=== PATIENT | female | born 1940 | race Caucasian/White ===

== ENCOUNTER 2018-08-31 10:28 | Inpatient (IN) | payer OTHER ==
[2018-08-31] VITALS (31 sets, daily range): BP systolic 67–116; BP diastolic 29–91
[~2018-08-31] VITALS: Ht 152.4 cm; Wt 93.3 kg
--- NOTE | ~2018-08-31 | HC ---
[facility] [place] [address] CONSULTATION Name: ALISHA PALMA Room #: 246-P ADM IN M.R.#: [id number] Admission: 08/31/18 Attend Phys: David Gonzales MD Discharge: Date of : 42 Report #: [id number] THIS REPORT FOR: //name// CC: David Naranjo REASON FOR CONSULTATION: Weakness, lightheadedness, acute kidney injury and hyperkalemia. HISTORY OF PRESENT ILLNESS: A 77-year-old with extensive past medical history including diabetes mellitus and hypertension. However, she is not known to have chronic kidney disease as she stated. She presented to the hospital with sudden onset lightheadedness, weakness, lethargy that started this morning after she woke up from sleep. She also reported to [employer] emesis times 3. She tells me that she has been taking daily ibuprofen for the last few days. She visited with [facility] few weeks ago for the same symptoms. She was told that she had a kidney infection and prescribed some medication, but the patient or her son does not know the name of the medications for the infection. No chest pain. No shortness of breath. No palpitation. No neurological symptoms. She also reported to black stool; however, she is taking iron. She tells me that her blood pressure and blood sugar are under well control. She has had an EGD and colonoscopy few years ago and was told that she has a benign polyp. When the patient presented to the emergency room, she was found to have an acute kidney injury with elevated creatinine at 2.9. No known baseline. She was also found to be hyperkalemic and in sinus bradycardia. Blood pressure on presentation was on the low side with reported blood pressure readings initially of 113/73. She did have some loss of appetite. I am being consulted to manage her acute kidney injury. HOME MEDICATIONS: Include the followin. Ferrous sulfate. 2. Atorvastatin. 3. Spironolactone. 4. Benazepril. 5. Aspirin. 6. Ibuprofen. 7. Raloxifene. 8. Lasix. 9. Metformin. 10. Levothyroxine. 11. Potassium. FAMILY HISTORY: She tells me that her dad had some heart enlargement issues. SOCIAL HISTORY: She lives with her son. No drug or alcohol abuse. 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 [address] [address] CONSULTATION Name: ALISHA PALMA Room #: 246-P [facility] IN ..#: [id number] Admission: 08/31/18 Attend Phys: David Gonzales MD Discharge: Date of : 42 Report #: [id number] REVIEW OF SYSTEMS: GENERAL: Significant for weakness, lethargy. CARDIOVASCULAR: No chest pain or palpitation. PULMONARY: No cough or hemoptysis. GASTROINTESTINAL: As per the history of present illness. GENITOURINARY: No frequency, no urgency. MUSCULOSKELETAL: Chronic back pain. SKIN: No rash or ulcerations. PAST SURGICAL HISTORY: 1. section. 2. Small bowel obstruction. 3. Four back surgeries. PHYSICAL EXAMINATION: GENERAL: She is alert, oriented, in no apparent distress. VITAL SIGNS: Temperature 36.6, blood pressure was 113/73. HEAD AND NECK: No jugular venous distention, no bruit, no thyromegaly. CHEST: Clear to auscultation bilaterally. CARDIOVASCULAR: No rub detected. ABDOMEN: Soft, nontender. LOWER EXTREMITIES: No edema. LABORATORY VALUES: Reviewed. pH of 7.2. Sodium 131, potassium 6.5, carbon dioxide 18, BUN is 48, creatinine is 2.9. UA is not received. Chest x-ray is not done. ASSESSMENT, IMPRESSION AND PLAN: 1. Acute kidney injury. 2. Hyperkalemia. 3. Hypotension. 4. Diabetes mellitus. 5. History of hypertension. 6. Hyperlipidemia. 7. Hypothyroidism. The patient's acute kidney injury is well explained by her presentation, hypertension, numerous blood pressure medications. Her hyperkalemia is also well explained by the angiotensin converting enzyme inhibitor, potassium supplement, and spironolactone. She does seem to be volume depleted and this is being investigated by the GI team. From the renal perspective, she received appropriate treatment for her hyperkalemia and repeat potassium is pending. I will reformulate her IV fluid. This is to address her acidosis and hyperkalemia. Continue with the fluid resuscitation. Strict input and output. Discontinue all offending agents of hyperkalemia including potassium supplementations and spironolactone. Discontinue anti-blood pressure [address] [address] CONSULTATION Name: ALISHA PALMA Room #: 246-P ADM IN M.R.#: [id number] Admission: 08/31/18 Attend Phys: David Gonzales MD Discharge: Date of : 42 Report #: [id number] medications. Discontinue metformin. Gastrointestinal workup had been initiated. By: [id number] Kathy Mercado MD /tucker
[2018-08-31] MEDS ORDERED: ASPIR 8181 MG PO (10:41)
[2018-08-31] MEDS ORDERED: LASIX 40 MG TAB40 M2 PO (10:41)
[2018-08-31] MEDS ORDERED: VITAMIN E400 UNIT PO (10:42)
[2018-08-31] MEDS ORDERED: EVISTA PO (10:43)
[2018-08-31] MEDS ORDERED: IRON325 PO (10:44)
[2018-08-31] MEDS ORDERED: SYNTHROID75 MCG PO (10:44)
[2018-08-31] MEDS ORDERED: EVISTA60 MG PO (10:44)
[2018-08-31] MEDS ORDERED: ALDACTONE100 MG PO (10:45)
[2018-08-31] MEDS ORDERED: LIPITOR10 MG PO (10:46)
[2018-08-31] MEDS ORDERED: CRESTOR20 MG PO (10:46)
[2018-08-31] MEDS ORDERED: BENAZEPRIL HCL20 MG PO (10:46)
[2018-08-31] MEDS ORDERED: JANUVIA100 MG PO (10:47)
[2018-08-31] MEDS ORDERED: IBUPROFEN 800800 M1 PO (10:48)
[2018-08-31] MEDS ORDERED: GLIPIZIDE ER10 MG PO (10:48)
[2018-08-31] MEDS ORDERED: POTASSIUM20 PO (10:49)
[2018-08-31] MEDS ORDERED: METFORMIN HCL500 MG PO (10:49)
[2018-08-31 12:57] LABS: ABSOLUTE NEUTROPHILS 7.6 thou/uL (1.4-8.2); BASOPHILS 1.1 % (0.0-2.0); EOSINOPHILS 0.8 % (0.0-3.0); HEMATOCRIT 40.8 % (37.0-47.0); HEMOGLOBIN 13.4 gm/dL (12.0-15.0); LYMPHOCYTES 18.7 % (24.0-44.0); MCH 26.1 pg (26.0-34.0); MCHC 32.7 g/dL (28.0-37.0); MCV 79.7 fL (80.0-100.0); MONOCYTES 5.1 % (1.0-8.0); PLATELET COUNT 142 thou/uL (150-400); POLYS 74.3 % (36.0-66.0); RBC 5.12 mil/uL (4.20-5.00); RDW 20.6 % (10.5-14.5); WBC 10.3 thou/uL (4.0-11.0)
[2018-08-31 13:07] LABS: ANION GAP 14 mmol/L (7-16); BUN 48 mg/dL (7-18); CHLORIDE 99 mmol/L (98-107); CO2 18 mmol/L (21-32); CREATININE 2.9 mg/dL (0.6-1.0); GLUCOSE 163 mg/dL (74-106); SODIUM 131 mmol/L (136-145)
[2018-08-31 13:08] LABS: POTASSIUM 6.5 mmol/L (3.5-5.1)
[2018-08-31 13:13] LABS: APTT 28.3 Seconds (24.5-32.8)
[2018-08-31 13:19] LABS: ALBUMIN 3.4 g/dL (3.4-5.0); LIPASE 123 U/L (73-393); SGOT 24 U/L (15-37); SGPT 32 U/L (14-59); TOTAL BILIRUBIN 0.4 mg/dL (<0.1-1.0); TOTAL PROTEIN 6.8 g/dL (6.4-8.2); TROPONIN-I <0.06 ng/mL (<0.06)
[2018-08-31 13:29] LABS: INR 1.1; PROTIME 11.2 Seconds (9.3-11.4)
[2018-08-31 13:35] LABS: ANISOCYTOSIS 1+; OVALOCYTES 1+; PLATELET ESTIMATE NORMAL
[2018-08-31 13:38] LABS: BE(vivo) -12.4 mmol/L (-2 to +3); HCO3 14.3 mmol/L (22.0-26.0); PCO2 35.6 mmHg (35.0-45.0); PO2 86.7 mmHg (80.0-100.0); sO2 94.9 % (92.0-98.0)
[2018-08-31 13:39] LABS: pH 7.223 (7.360-7.450)
[2018-08-31 15:04] LABS: URINE BILIRUBIN NEGATIVE (Negative); URINE BLOOD NEGATIVE (Negative); URINE CLARITY CLEAR; URINE COLOR YELLOW; URINE GLUCOSE-RANDOM* NEGATIVE (Negative); URINE KETONES NEGATIVE (Negative); URINE LEUKOCYTES-REFLEX TRACE (Negative); URINE NITRITE-REFLEX NEGATIVE (Negative); URINE PROTEIN (DIPSTICK) NEGATIVE (Negative); URINE UROBILINOGEN 0.2 E.U./dl (0.2-1.0)
[2018-08-31 15:12] LABS: URINE CREATININE-RANDOM* 49.2 mg/dL; URINE PROTEIN-RANDOM* 27.6 mg/dL (<11.9)
--- NOTE | 2018-08-31 16:17 | EKG ---
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: WG : 1940 Requested By: Navneet Hayes Order Number: [id number] MD: Dakotah Oneil Measurements Intervals [place] Rate: 64 P: 15 DE: 163 QRS: -6 QRSD: 96 T: 62 QT: 396 QTc: 409 Interpretive Statements Sinus rhythm Inferior infarct, age indeterminate Consider anterior infarct No previous ECG available for comparison Electronically Signed On 08-31-2018 16:17:47 CRIMINAL LAWYER by Dakotah Oneil [email or web address] <ELECTRONICALLY SIGNED> By: Dakotah Oneil MD, [facility] 08/31/18 1617 1103 02 Dakotah Oneil MD, FACC /EPI
--- NOTE | 2018-08-31 16:18 | NUR ---
VASCULAR ACCESS CONSULTED FOR ACCESS THIS PT IN THE ER. A 16G PLACED IN RT AC WITH LABS DRAWN, THEN AN 18G IN MILES WITH LABS DRAWN, THEN DR SEBASTIÁN PARRY REQUESTED A CL. THE PT'S SON WAS AT THE BS AND CONSENTED VERBALLY. PER HOSP P&P HER RT IJ WAS ACCESSED X1 ATTEMPT WITH US GUIDE, A [id number] PLACED IN RT IJ AND INSERTED TO 19CM WITH A BRISK BLOOD RETURN. LABS OBTAINED AGAIN AND CXR WAS ORDERED. THE PT WAS SENT TO ICU PRIOR TO THE CXR SO WILL FOLLOW UP AND ENSURE THE TIP IS CONFIRMED IN THE CORRECT POSITION.
--- NOTE | 2018-08-31 19:24 | NUR ---
PT ARRIVED AT 1620 VIA ER GURJOSE EDUARDO. A/OX4, COMPLAINTS OF DIZZINESS, SEE CHARTING FOR VITAL SIGNS, ORDERS TO GIVE REMAINING NS BOLUSES AND CALL NEPHROLOGY WITH UPDATED B/P. 1650 B/P 66/40 POST BOLUSES, PIPPA CALLED TO UPDATE, ORDERS RECEIVED, WILL MONITOR CLOSELY.
[2018-09-01] VITALS (59 sets, daily range): BP systolic 86–123; BP diastolic 41–105
[2018-09-01 03:11] LABS: HEMATOCRIT 36.1 % (37.0-47.0); HEMOGLOBIN 11.6 gm/dL (12.0-15.0); MCH 25.3 pg (26.0-34.0); MCHC 32.3 g/dL (28.0-37.0); MCV 78.4 fL (80.0-100.0); RBC 4.6 mil/uL (4.20-5.00); RDW 20.7 % (10.5-14.5); WBC 12.7 thou/uL (4.0-11.0)
[2018-09-01 03:21] LABS: POTASSIUM 4.7 mmol/L (3.5-5.1)
[2018-09-01 03:25] LABS: CALCIUM 6.9 mg/dL (8.5-10.1)
[2018-09-01 03:26] LABS: ALBUMIN 2.7 g/dL (3.4-5.0); PHOSPHORUS 3.5 mg/dL (2.5-4.9); TOTAL BILIRUBIN 0.4 mg/dL (<0.1-1.0); TOTAL PROTEIN 5.7 g/dL (6.4-8.2)
--- NOTE | 2018-09-01 07:30 | NUR ---
ASSUMED CARE OF PT AT 1900. PT A&O, PLEASANT, AND IN NO DISTRESS. PT STILL HYPOTENSIVE EARLIER IN THE NIGHT, BUT MAP ALWAYS REMAINED ABOVE 60. TWO NS LITER BOLUSES INFUSING AT THE TIME, AND EVEN AFTER THEY WERE FINISHED, PT'S BP CONTINUED TO IMPROVE. PT C/O OF SOME PAIN OVERNIGHT, BUT SLEPT WELL OVERALL. AROUND 0250, PT ASKED TO GET UP TO COMMODE TO HAVE BOWEL MOVEMENT. PT TX'D WELL, WITHOUT DISTRESS, AND HAD A LARGE, SOFT BLACK BM. PT TX'D BACK TO BED WITHOUT DIFFICULTY. WHEN GETTING SITUATED IN BED, PT'S RHYTHM WENT FROM SINUS TACH TO TORSADES DE POINTES, NON-SUSTAINED. THE EPISODE LASTED SEVERAL MINUTES, ALL OF WHICH TIME THE PT WAS SITTING UP IN BED, ALERT, AND TALKING. PT SAID SHE WAS SOMEWHAT DIZZY AFTER RETURNING TO BED. STAT LABS DRAWN. MAG RESULTED 1.0. DR. ANTHONY NOTIFIED AND 4 MG MAGNESIUM ORDERED TO INFUSE OVER 6 HOURS. NO MORE EPISODES OF TORSADES OR ANY DYSRHYTHMIA FOR THE REST OF THE SHIFT, PT IN SINUS RHYTHM. STOOL SENT TO LAB FOR OCCULT BLOOD. STOOL WAS POSITIVE FOR BLOOD. PT TO HAVE EGD TODAY D/T COFFEE GROUND EMESIS ON ADMISSION. ASSESSMENTS AND VITALS DOCUMENTED. WILL CONTINUE TO MONITOR. PT'S HOME MEDS INVENTORY TAKEN AND SENT TO PHARMACY.
--- NOTE | 2018-09-01 10:14 | EKG ---
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 : 1940 Requested By: David Gonzales Order Number: [id number] MD: Balaji Thompson Measurements Intervals [place] Rate: 80 P: 34 ID: [id number] QRS: -5 QRSD: 87 T: 146 QT: 336 QTc: 388 Interpretive Statements Sinus rhythm Abnormal R-wave progression, early transition Inferior infarct, old Lateral leads are also involved Compared to ECG 08/31/2018 11:03:32 No significant changes Electronically Signed On 09-01-2018 10:13:56 CARDIAC SPECIALIST by Balaji Thompson [email or web address] <ELECTRONICALLY SIGNED> By: Balaji Thompson MD 09/01/18 1013 [id number] [id number] Balaji Thompson MD /EPI
--- NOTE | 2018-09-01 17:37 | NUR ---
PATIENT RESTING QUIETLY AND CALMLY AT THIS TIME. SHE HAD AN EGD TODAY, NOT PERFORMED IN THE ICU. SHE ARRIVED BACK TO THE UNIT ALERT AND ORIENTED. SHE REMAINS PLEASANT AND COOPERATIVE. VITAL SIGNS DOCUMENTED. MARTINEZ WAS DISCONTINUED PER RENAL PHYSICIAN ORDER. SHE HAS HAD A DRIBBLE OUT AFTER MARTINEZ REMOVAL, HOWEVER NOTHING MEASURABLE. SHE HAS HAD TWO SMEAR BOWEL MOVEMENTS, HOWEVER NOTHING SIGNIFICANT. SHE DENIES NAUSEA AND WAS STARTED ON A FULL LIQUID DIET. SHE IS UP TO COMMODE WITH ASSIST X1, STABLE AND STEADY ON HER FEET. PT TO COME WORK WITH HER TOMORROW TODAY SHE HAD MULTIPLE TESTS. MINIMAL ECTOPY NOTED ON RHYTHM STRIPS, SHE HAS ONLY HAD OCCASIONAL PVC'S. PLAN OF CARE IS TO CONTINUE TO MONITOR PATIENT STATUS, PAIN LEVEL, PROVIDE EDUCATION, PERFORM VITAL SIGNS, AND MONITOR I&O. PATIENT PROGRESSING TOWARDS PLAN OF CARE.
--- NOTE | 2018-09-01 20:51 | 2DMMODE ---
[facility] [place] [address] 2 D/M-MODE ECHOCARDIOGRAM Name: ALISHA PALMA Room #: 246-P ADM IN M.R.#: [id number] Admission: 08/31/18 Attend Phys: David Gonzales MD Discharge: Date of : 42 Date of Service: 09/01/182050 Report #: [id number] THIS REPORT FOR: //name// APPROVED REPORT Study performed: 09/01/2018 09:00:07 EXAM: Comprehensive 2D, Doppler, and color-flow Echocardiogram Patient Location: ICU Room #: [facility] Status: routine BSA: 1.82 HR: 81 bpm BP: 109/64 mmHg Rhythm: NSR Other Information Study Quality: Technically Difficult Indications Abnormal ECG Diabetes Hypertension/HDD Echo Enhancing Agent Indication: Endocardial border delineation Agent(s) / Amount(s) Used: Optison 2 cc 2D Dimensions RVDd: 31.83 mm IVSd: 5.92 (7-11mm) LVOT Diam: 16.89 (18-24mm) LVDd: 46.35 mm PWd: 9.23 (7-11mm) Ascending Ao: 27.97 (22-36mm) LVDs: 38.89 (25-40mm) Left Atrium: 32.44 (27-40mm) Aortic Root: 28.75 mm LV Single Plane 4CH: 28.78 % LV Single Plane 2CH: 16.70 % Volumes Left Atrial Volume (Systole) Single Plane 4CH: 59.61 mL Single Plane 2CH: 60.13 mL Aortic Valve AoV Peak Skip.: 1.20 m/s AO Peak Gr.: 5.80 mmHg [facility] [address] [place] [address] 2 D/M-MODE ECHOCARDIOGRAM Name: PALMAMARCELINO TAMAYOYCE Room #: 246-P [facility].#: [id number] Admission: 08/31/18 Attend Phys: David Gonzales MD Discharge: Date of : 42 Date of Service: 09/01/182050 Report #: [id number] AO Mean Gr.: 2.80 mmHg AO V2 Mean: 0.78 m/s AO V2 VTI: 20.78 cm Mitral Valve E/A Ratio: 0.7 MV Decel. Time: 183.54 ms MV E Max Skip.: 0.61 m/s MV A Skip.: 0.91 m/s MV PHT: 53.23 ms IVRT: 107.27 ms Pulmonary Vein P Vein S: 0.43 m/s P Vein A: 0.32 m/s P Vein D: 0.30 m/s P Vein A Dur.: 152.2 msec P Vein S/D Ratio: 1.43 Tricuspid Valve TR Peak Skip.: 2.03 m/s TR Peak Gr.: 16.56 mmHg Left Ventricle The left ventricle is mod dilated There is global hypokinesis of the left ventricle. There is normal left ventricular wall thickness. Left ventricular ejection fraction is severely decreased. LVEF is 20-25%. Right Ventricle The right ventricle is normal size. There is normal right ventricular wall thickness. The right ventricular systolic function is normal. Atria Left atrium is moderately dilated. Possible PFO is noted. The right atrium size is normal. Aortic Valve Aortic valve is grossly normal in structure. Trace aortic regurgitation. There is no aortic valvular stenosis. Mitral Valve The mitral valve is normal in structure. Mild to moderate mitral regurgitation. No [facility] [address] [place] [address] 2 D/M-MODE ECHOCARDIOGRAM Name: ALISHA PALMA Room #: 246-P ADM IN M.R.#: [id number] Admission: 08/31/18 Attend Phys: David Gonzales MD Discharge: Date of : 42 Date of Service: 09/01/182050 Report #: [id number] evidence of mitral valve stenosis. Tricuspid Valve Mild tricuspid regurgitation. PAP is estimated to be 26 mmHg. Pulmonic Valve There is no pulmonic valvular regurgitation. Great Vessels The aortic root is normal in size. IVC is upper limits in size and collapses <50% with inspiration. Pericardium There is no pericardial effusion. Critical Notification Critical Value: No <Conclusion> The left ventricle is mod dilated There is global hypokinesis of the left ventricle. LVEF is 20-25%. The right ventricle is normal size. Left atrium is moderately dilated. Aortic valve is grossly normal in structure. Trace aortic regurgitation. Mild to moderate mitral regurgitation. Mild tricuspid regurgitation. PAP is estimated to be 26 mmHg. The aortic root is normal in size. There is no pericardial effusion. <ELECTRONICALLY SIGNED> By: Baldomero Parekh MD, FACC 09/01/182050 50 50 Baldomero Parekh MD, FACC /INF
[2018-09-02] VITALS (17 sets, daily range): BP systolic 88–127; BP diastolic 38–90
[2018-09-02 05:13] LABS: HEMATOCRIT 30.8 % (37.0-47.0); HEMOGLOBIN 10.5 gm/dL (12.0-15.0); MCH 26.6 pg (26.0-34.0); MCV 78.1 fL (80.0-100.0); RBC 3.94 mil/uL (4.20-5.00); RDW 20.3 % (10.5-14.5); WBC 10.6 thou/uL (4.0-11.0)
[2018-09-02 05:26] LABS: ALBUMIN 2.3 g/dL (3.4-5.0); POTASSIUM 3.2 mmol/L (3.5-5.1)
[2018-09-02 05:28] LABS: CREATININE 0.9 mg/dL (0.6-1.0)
--- NOTE | 2018-09-02 06:43 | NUR ---
ASSESSMENTS CHARTED. POTASSIUM LOW THIS AM 3.2. SINUS RHYTHM WITH 3 RUNS OF VTACH DURING SHIFT. LONGEST WAS 22 BEATS. GENERALIZED EDEMA. STARTED SHIFT ON ROOM AIR, DURING SLEEP, DESATS PLACED ON 3 LITERS NC DURING SLEEP. ADEQUATE OUTPUT. NO PROBLEMS URINATING. CONTINENT. DENIED PAIN. PATIENT MOVED TO ROOM 240 DUE TO DAY STAFFING. PLAN OF CARE STILL WORKING ON CARDIAC ISSUES.
--- NOTE | 2018-09-02 19:15 | NUR ---
CONSENT SIGNED FOR CARDIAC CATH IN AM. PT ALERT/ORIENTED, SR/ST, NO ECTOPY, REPLACED MAG X 2 AND K+, NOW BOTH LABS THERAPEUTIC. ROOM AIR, RESP EVEN AND UNLABORED, NO CARDIAC SIGNS/SYMPTOMS, UP TO BSC COMMODE TO VOID WITH MINIMAL ASSIST. PT HAD EPISODE OF NAUSEA RELIEVED WITH ZOFRAN, NO EMESIS OR GI BLEED. PT PROGRESSING AND AWAITING CATH IN AM.
--- NOTE | 2018-09-02 20:00 | NUR ---
ASSUMED CARE OF A DELIGHTFUL LITTLE LADY. AWAKE AND ALERT. NEURO INTACT. REMAINS IN SINUS RHYTHM. LUNGS CLEAR. UP TO COMMODE VOIDING WITHOUT DIFFICULTY. DENIES PAIN NOR DISCOMFORT. S/C FOR HEART CATH IN AM. WILL CONT TO MONITOR.
[2018-09-03] VITALS (33 sets, daily range): BP systolic 92–146; BP diastolic 36–83
--- NOTE | 2018-09-03 02:47 | NUR ---
ASSUMED PT CARE AT 2300. PT A/OX4, VITAL SIGNS STABLE, ASSESSMENT CHARTED. PT ON 2L O2 DUE TO LOW O2SAT. PT ASSISSTED TO BEDSIDE COMMODE NEEDED. RESTED WELL THROUGH THE NIGHT. PROGRESSING TOWARD PLAN OF CARE. CONSENT SIGNED FOR CATH IN AM. NPO SINCE MIDNIGHT. WILL CONTINUE TO MONITOR.
[2018-09-03 05:07] LABS: ALBUMIN 2.4 g/dL (3.4-5.0); CALCIUM 7.6 mg/dL (8.5-10.1); CREATININE 0.8 mg/dL (0.6-1.0); MAGNESIUM 1.9 mg/dL (1.8-2.4); PHOSPHORUS 2.2 mg/dL (2.5-4.9); POTASSIUM 3.4 mmol/L (3.5-5.1)
[2018-09-03 12:06] LABS: ABSOLUTE NEUTROPHILS 5.3 thou/uL (1.4-8.2); BASOPHILS 1.1 % (0.0-2.0); EOSINOPHILS 3.1 % (0.0-3.0); HEMATOCRIT 32.6 % (37.0-47.0); HEMOGLOBIN 11.2 gm/dL (12.0-15.0); LYMPHOCYTES 33.4 % (24.0-44.0); MCH 26.4 pg (26.0-34.0); MCHC 34.4 g/dL (28.0-37.0); MCV 76.9 fL (80.0-100.0); MONOCYTES 10.9 % (1.0-8.0); PLATELET COUNT 108 thou/uL (150-400); POLYS 51.5 % (36.0-66.0); RBC 4.24 mil/uL (4.20-5.00); RDW 20.8 % (10.5-14.5); WBC 10.3 thou/uL (4.0-11.0)
[2018-09-03 12:15] LABS: CALCIUM 7.9 mg/dL (8.5-10.1); CREATININE 0.8 mg/dL (0.6-1.0); POTASSIUM 3.5 mmol/L (3.5-5.1)
[2018-09-03 12:20] LABS: ALBUMIN 2.4 g/dL (3.4-5.0); TOTAL BILIRUBIN 0.8 mg/dL (<0.1-1.0); TOTAL PROTEIN 5.1 g/dL (6.4-8.2)
[2018-09-03 12:49] LABS: ANISOCYTOSIS 1+
[2018-09-03 13:40] LABS: APTT 26.1 Seconds (24.5-32.8); INR 1.1; PROTIME 11.5 Seconds (9.3-11.4)
--- NOTE | 2018-09-03 15:28 | NUR ---
met with patient she admits with gi bleed, went to cardiac cath and planned CABG on wed 10/03/18. Patient A/Ox3, her son at bedside. Patient reports she and son live together in independent home with all needs on one level. She does not use any assistive device to ambulate. She has a cane if needed she does not have a walker. Both she and son drive. Therapy evals post procedure wed to be ordered. Casemgt following.
[2018-09-03 18:01] LABS: URINE BILIRUBIN NEGATIVE (Negative); URINE BLOOD NEGATIVE (Negative); URINE CLARITY CLEAR; URINE COLOR YELLOW; URINE GLUCOSE-RANDOM* NEGATIVE (Negative); URINE KETONES NEGATIVE (Negative); URINE LEUKOCYTES-REFLEX 1+ (Negative); URINE NITRITE-REFLEX NEGATIVE (Negative); URINE PROTEIN (DIPSTICK) NEGATIVE (Negative)
--- NOTE | 2018-09-03 18:14 | NUR ---
PT WAS TAKEN TO ERECTING CRANE OPERATOR THIS AM WHERE 3 VESSEL DISEASE WAS FOUND. PT IS SCHEDULED FOR OPEN HEART ON MONDAY. PT IS AWARE OF ALL THE RISKS AND BENIFITS OF THIS PROCEDURE AND HAS AGREED. GROIN HAS SLIGHT SHADOWING AND HAS A SLIGHT BRUISE RIGHT BELOW THE DRESSING THAT IS PREVIOUSLY NOTED.
[2018-09-03 18:25] LABS: BACTERIA-REFLEX 1-9 Few /HPF (None Seen); CASTS None Seen /LPF (None Seen); SQUAMOUS None Seen /LPF (0-3); TRIPLE PHOSPHATE CRYSTALS 0-3 Few /LPF (None Seen); URINE RBC None Seen /HPF (0-2); URINE WBC-REFLEX 0-5 Rare /HPF (0-5)
--- NOTE | 2018-09-03 22:18 | NUR ---
GCS 15. A&O X3-4. CALM, PLEASANT DEMEANOR. PT STATES SHE IS EAGER FOR SURGERY ON MONDAY AND FEELS OPTIMISTIC ABOUT ITS OUTCOME. SINUS RHYTHM ON MONITOR. SMALL VOLUME DRAINAGE FROM RIGHT GROIN CATH SITE. DRESSING INTACT. ALL EXTREMITIES WARM. PULSES PALPABLE. TOLERATES ROOM AIR WHILE AWAKE. DESATS WHEN SLEEPING. PT CURRENTLY SLEEPING, O2 SAT > 92% ON 1.5L PER NC. DENIES SOA.
[2018-09-04] VITALS (26 sets, daily range): BP systolic 77–209; BP diastolic 46–157
[2018-09-04 00:07] LABS: GLYCOHEMOGLOBIN (HGB A1C) 7.9 % (4.8-5.6)
[2018-09-04 05:34] LABS: HEMATOCRIT 29.1 % (37.0-47.0); HEMOGLOBIN 9.9 gm/dL (12.0-15.0); MCH 26.3 pg (26.0-34.0); MCHC 34.1 g/dL (28.0-37.0); RBC 3.78 mil/uL (4.20-5.00); RDW 20.1 % (10.5-14.5)
[2018-09-04 05:45] LABS: ANION GAP 2 mmol/L (7-16); BUN 11 mg/dL (7-18); CALCIUM 8.1 mg/dL (8.5-10.1); CHLORIDE 100 mmol/L (98-107); CHOLESTEROL 76 mg/dL (<200); CO2 35 mmol/L (21-32); CREATININE 0.8 mg/dL (0.6-1.0); GLUCOSE 187 mg/dL (74-106); HDL CHOLESTEROL 27 mg/dL (>40); LDL CHOLESTEROL 37 mg/dL (<100); MAGNESIUM 1.7 mg/dL (1.8-2.4); POTASSIUM 3.4 mmol/L (3.5-5.1); SODIUM 137 mmol/L (136-145); TC:HDL 2.8 Ratio (Not establshd); TRIGLYCERIDE 64 mg/dL (<150); VLDL 13 mg/dL (<40)
[2018-09-04 05:49] LABS: SERUM ASSESSMENT Clear
[2018-09-04 11:27] LABS: FOLIC ACID 10.7 ng/mL (8.6-58.9)
[2018-09-04 12:13] LABS: MAGNESIUM 1.5 mg/dL (1.8-2.4); POTASSIUM 3.3 mmol/L (3.5-5.1)
--- NOTE | 2018-09-04 13:58 | NUR ---
PATIENT REMAINS A&O X 4, PLEASANT AND COOPERATIVE WITH CARES. DENIES PAIN OF ANY TYPE. PATIENT DENIES SOA, CURRENTLY ON O2@2L PER NASAL CANNULA WITH SATS AT 97%. GI BAKED AND GRAPHITE INSPECTOR IS AWARE OF THE DECREASE IN HGB, THERE IS NO OVERT SIGNS OF BLEEDING. RIGHT GROIN SITE REMAINS INTACT. PATIENT TO HAVE CABG TOMORROW MORNING. CONSENT SIGNED AND ON THE CHART. ENCOURAGED TO USE I.S. FOR LUNG STRENGTH. REPLACING MAG AND POTASSIUM. PATIENT RESTING IN BED AT THIS TIME WITH SON AT BEDSIDE. NO OTHER CONCERNS AT THIS TIME. WILL CONTINUE TO MONITOR AND CARE PER PLAN OF CARE.
[2018-09-04 18:39] LABS: MAGNESIUM 1.7 mg/dL (1.8-2.4)
[2018-09-04 18:40] LABS: POTASSIUM 4.7 mmol/L (3.5-5.1)
--- NOTE | 2018-09-04 20:38 | NUR ---
GCS 15. A&O X3. FORGETFUL. CALM, PLEASANT DEMEANOR. PT STATES SHE IS FOCUSING MAINTAINING A POSITIVE ATTITUDE PRIOR TO SURGERY. SINUS RHYTHM ON MONITOR. O2 SAT > 92% ON 2L PER NC. I.S. AT BEDSIDE. DENIES SOA. TURNS WITH ASSIST. X1 ASSIST TO BSC. SKIN INTACT. VITAL SIGNS AND ASSESSMENTS DOCUMENTED. WILL CONTINUE TO MONITOR.
[2018-09-05] VITALS (18 sets, daily range): BP systolic 90–158; BP diastolic 44–99
[2018-09-05 03:50] LABS: CALCIUM 8.2 mg/dL (8.5-10.1); CREATININE 0.8 mg/dL (0.6-1.0); POTASSIUM 4.1 mmol/L (3.5-5.1)
[2018-09-05 04:01] LABS: HEMATOCRIT 28.7 % (37.0-47.0); HEMOGLOBIN 9.7 gm/dL (12.0-15.0); MCH 26.2 pg (26.0-34.0); MCHC 33.9 g/dL (28.0-37.0); MCV 77.4 fL (80.0-100.0); RBC 3.71 mil/uL (4.20-5.00); RDW 20.2 % (10.5-14.5); WBC 12.7 thou/uL (4.0-11.0)
--- NOTE | 2018-09-05 08:59 | NUR ---
0845 - PT TO OR FOR CABG AFTER REPORT GIVEN TO LARISA GARNETT
[2018-09-05 15:42] LABS: MCH 28.2 pg (26.0-34.0); MCHC 35.3 g/dL (28.0-37.0); MCV 79.9 fL (80.0-100.0); RBC 2.87 mil/uL (4.20-5.00); RDW 18.3 % (10.5-14.5); WBC 9.7 thou/uL (4.0-11.0)
[2018-09-05 15:43] LABS: HEMOGLOBIN 8.1 gm/dL (12.0-15.0)
[2018-09-05 15:53] LABS: APTT 34.3 Seconds (24.5-32.8); FIBRINOGEN 162.6 mg/dL (210-360); PROTIME 18.1 Seconds (9.3-11.4)
[2018-09-05 15:55] LABS: INR 1.7
[2018-09-05 16:53] LABS: POC BE 7 mmol/L (-2.0 to +3.0); POC CA IONIZED 5.3 mg/dL (4.5-5.3); POC GLUCOSE 128 mg/dL (70-99); POC HCO3 30.3 mmol/L (22.0-26.0); POC HEMOGLOBIN 7.1 g/dL (12.0-15.0); POC POTASSIUM 3.8 mmol/L (3.5-5.1); POC SODIUM 136 mmol/L (136-145); POC pCO2 41.9 mmHg (35.0-45.0); POC pH 7.468 (7.360-7.450)
[2018-09-05 16:53] LABS: POC BE 6 mmol/L (-2.0 to +3.0); POC CA IONIZED 3.8 mg/dL (4.5-5.3); POC GLUCOSE 115 mg/dL (70-99); POC HCO3 28.9 mmol/L (22.0-26.0); POC HEMOGLOBIN 6.5 g/dL (12.0-15.0); POC POTASSIUM 3.4 mmol/L (3.5-5.1); POC SODIUM 138 mmol/L (136-145); POC pCO2 34.5 mmHg (35.0-45.0); POC pH 7.532 (7.360-7.450)
[2018-09-05 16:53] LABS: POC BE 8 mmol/L (-2.0 to +3.0); POC GLUCOSE 120 mg/dL (70-99); POC HCO3 30.9 mmol/L (22.0-26.0); POC HEMOGLOBIN 6.8 g/dL (12.0-15.0); POC POTASSIUM 3.7 mmol/L (3.5-5.1); POC SODIUM 139 mmol/L (136-145); POC pCO2 38.1 mmHg (35.0-45.0); POC pH 7.518 (7.360-7.450)
[2018-09-05 16:53] LABS: POC BE 6 mmol/L (-2.0 to +3.0); POC CA IONIZED 3.9 mg/dL (4.5-5.3); POC GLUCOSE 116 mg/dL (70-99); POC HCO3 29.5 mmol/L (22.0-26.0); POC HEMOGLOBIN 6.5 g/dL (12.0-15.0); POC POTASSIUM 3.7 mmol/L (3.5-5.1); POC SODIUM 137 mmol/L (136-145); POC pCO2 37.5 mmHg (35.0-45.0); POC pH 7.503 (7.360-7.450)
[2018-09-05 16:53] LABS: POC BE 15 mmol/L (-2.0 to +3.0); POC CA IONIZED 4.3 mg/dL (4.5-5.3); POC GLUCOSE 183 mg/dL (70-99); POC HCO3 36.3 mmol/L (22.0-26.0); POC HEMOGLOBIN 8.5 g/dL (12.0-15.0); POC SODIUM 134 mmol/L (136-145); POC pCO2 36.6 mmHg (35.0-45.0); POC pH 7.604 (7.360-7.450)
[2018-09-05 16:53] LABS: POC BE 7 mmol/L (-2.0 to +3.0); POC CA IONIZED 4.3 mg/dL (4.5-5.3); POC GLUCOSE 149 mg/dL (70-99); POC HCO3 29.3 mmol/L (22.0-26.0); POC HEMOGLOBIN 8.2 g/dL (12.0-15.0); POC POTASSIUM 3.1 mmol/L (3.5-5.1); POC SODIUM 137 mmol/L (136-145); POC pCO2 34.9 mmHg (35.0-45.0); POC pH 7.531 (7.360-7.450)
[2018-09-05 16:53] LABS: POC BE 8 mmol/L (-2.0 to +3.0); POC CA IONIZED 3.8 mg/dL (4.5-5.3); POC GLUCOSE 132 mg/dL (70-99); POC HCO3 29.6 mmol/L (22.0-26.0); POC HEMOGLOBIN 7.5 g/dL (12.0-15.0); POC POTASSIUM 3.6 mmol/L (3.5-5.1); POC SODIUM 137 mmol/L (136-145); POC pCO2 32.3 mmHg (35.0-45.0)
[2018-09-05 16:53] LABS: POC BE 1 mmol/L (-2.0 to +3.0); POC CA IONIZED 4.6 mg/dL (4.5-5.3); POC GLUCOSE 137 mg/dL (70-99); POC HCO3 24.9 mmol/L (22.0-26.0); POC HEMOGLOBIN 7.8 g/dL (12.0-15.0); POC POTASSIUM 4.1 mmol/L (3.5-5.1); POC SODIUM 138 mmol/L (136-145); POC pCO2 36.8 mmHg (35.0-45.0)
[2018-09-05 16:54] LABS: POC BE 2 mmol/L (-2.0 to +3.0); POC GLUCOSE 130 mg/dL (70-99); POC HCO3 25.6 mmol/L (22.0-26.0); POC HEMOGLOBIN 8.8 g/dL (12.0-15.0); POC POTASSIUM 3.4 mmol/L (3.5-5.1); POC SODIUM 140 mmol/L (136-145); POC pCO2 33.5 mmHg (35.0-45.0)
[2018-09-05 17:21] LABS: BE(vivo) 0.1 mmol/L (-2 to +3); PCO2 36.1 mmHg (35.0-45.0); pH 7.441 (7.360-7.450); sO2 97.7 % (92.0-98.0)
[2018-09-05 17:35] LABS: HEMOGLOBIN 9.1 gm/dL (12.0-15.0); MCHC 35.2 g/dL (28.0-37.0); MCV 79.5 fL (80.0-100.0); RBC 3.27 mil/uL (4.20-5.00)
[2018-09-05 17:45] LABS: CALCIUM 8.2 mg/dL (8.5-10.1); CREATININE 0.7 mg/dL (0.6-1.0); MAGNESIUM 2.2 mg/dL (1.8-2.4); POTASSIUM 3.8 mmol/L (3.5-5.1)
[2018-09-05 17:48] LABS: APTT 30.2 Seconds (24.5-32.8); INR 1.3; PROTIME 13.3 Seconds (9.3-11.4)
--- NOTE | 2018-09-05 19:30 | NUR ---
Assumed care of this pt at 1900. Assessment is completed. She is on vent and sedated with propofol gtt notes. She is carl current vent setting well. Suctions with very little secretion via ETT. O2 sat 100% notes. She is hypotensive, CO/CI low. Large amount of drainage via Mediastinal CT. Give albumin 250 cc stat with some improvement of CO/CO. Will check coag profile, CBC stat.
--- NOTE | 2018-09-05 19:33 | NUR ---
PT ARRIVED TO ROOM S/P CABG X 5 AT [address] PEREZ, DR RAM, AND TWO RNS FROM ANESTHESIA. PT ARRIVED ON VENT WITH RT JUGULAR SWAN, RT RADIAL GABI, AND RT FEMORAL A-LINE. RT FEMORAL A-LINE CAPPED. SWAN AND RT RADIAL A-LINE HOOKED TO CARDIAC OUTPUT AND MINDRAY MONITORS. PT ARRIVED ON PROPOFOL, DOBUTAMINE, LEVOPHED, AND INSULIN GTT. PT GIVEN ONE UNIT FFP RIGHT AFTER ARRIVAL. (GIVEN 4 UNITS PRBC'S, AND 2 FFP IN OR PER REPORT). PT HAS MEDIASTINAL CHEST TUBES AND PLEURAL CT TO SUCTION, MEDS SLUGGISH TO DRAIN AT TIMES D/T SMALL CLOTS, REQUIRING FREQUENT ATTENTION. OG TO LIS. JUAN TO DD, GOOD UOP. PT'S SON PATRICIA UPDATED AND EDUCATED AFTER SURGERY AND VISITED PT AT BEDSIDE.
[2018-09-05 19:39] LABS: APTT 32.1 Seconds (24.5-32.8); FIBRINOGEN 152.9 mg/dL (210-360); INR 1.3; PROTIME 13.5 Seconds (9.3-11.4)
[2018-09-05 19:45] LABS: HEMATOCRIT 19.5 % (37.0-47.0); HEMOGLOBIN 6.8 gm/dL (12.0-15.0)
--- NOTE | 2018-09-05 20:10 | NUR ---
Mediastinal CTs is notes to have large blood clots in tubing. Removed Clots by per sterile technique. She is well carl procedure.
--- NOTE | 2018-09-05 20:10 | NUR ---
CTs notes some blood clots in tubing. Suctiopning CTs per sterile technique by . Continue to monitor any changes.
--- NOTE | 2018-09-05 23:00 | NUR ---
2 units of PRBC and 1 unit of cryo were given to this pt. CTs drainage is slowing down. SCVO2 improved. Will re check all BMP,CBC ,coag profile and ABG per .
[2018-09-05 23:15] LABS: CALCIUM 7.5 mg/dL (8.5-10.1); CREATININE 0.7 mg/dL (0.6-1.0); POTASSIUM 4.2 mmol/L (3.5-5.1)
[2018-09-05 23:20] LABS: APTT 32.9 Seconds (24.5-32.8); FIBRINOGEN 214.3 mg/dL (210-360); INR 1.2; PROTIME 12.4 Seconds (9.3-11.4)
[2018-09-05 23:57] LABS: MCH 29.1 pg (26.0-34.0); MCHC 36.2 g/dL (28.0-37.0); MCV 80.4 fL (80.0-100.0); RBC 3.23 mil/uL (4.20-5.00); RDW 15.8 % (10.5-14.5); WBC 8.7 thou/uL (4.0-11.0)
[2018-09-06] VITALS (23 sets, daily range): BP systolic 88–129; BP diastolic 49–72
[2018-09-06 00:07] LABS: HEMOGLOBIN 9.4 gm/dL (12.0-15.0)
[2018-09-06 00:09] LABS: BE(vivo) -0.9 mmol/L (-2 to +3); PCO2 40.6 mmHg (35.0-45.0); PO2 184.6 mmHg (80.0-100.0); pH 7.389 (7.360-7.450); sO2 99.3 % (92.0-98.0)
--- NOTE | 2018-09-06 00:10 | NUR ---
Rt radial A-line notes overdamped waveforms and reading ABP lower than NBP. ABP obtained from Femoral line.
[2018-09-06 05:25] LABS: HEMATOCRIT 23.8 % (37.0-47.0); HEMOGLOBIN 8.4 gm/dL (12.0-15.0); MCH 28.6 pg (26.0-34.0); MCHC 35.2 g/dL (28.0-37.0); MCV 81.5 fL (80.0-100.0); RBC 2.93 mil/uL (4.20-5.00); RDW 15.8 % (10.5-14.5); WBC 9.1 thou/uL (4.0-11.0)
[2018-09-06 05:28] LABS: INR 1.2; PROTIME 12.4 Seconds (9.3-11.4)
[2018-09-06 05:38] LABS: CALCIUM 7.7 mg/dL (8.5-10.1); CREATININE 0.7 mg/dL (0.6-1.0); MAGNESIUM 2.2 mg/dL (1.8-2.4); POTASSIUM 3.8 mmol/L (3.5-5.1)
--- NOTE | 2018-09-06 06:40 | NUR ---
Pt with low CO/CI this am. Continue to be on levophed gtt and dobutamine gtt. Her UO has been 40 cc/hr. Labs result are unremarakble. Call placed to ; order echo cardiogram stat. 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
--- NOTE | 2018-09-06 08:22 | NUR ---
Nutrition: pt admit with CAD, POD 1 CABG, gastric ulcers followed by GI. Received consult, no reason stated suspect for heart healthy diet education. Hx CKD, DM, HTN, HLD. Currently NPO on vent post op CABG however had had been on oral diet majority of admit and recently eating well. No wt hx BMI 41, extreme class 3 obesity. Per geriatric PATTERN CHANGER AND REPAIRER, + sarcopenia screen and decreased hand automobile and property underwriter strength. Follow for ability to advance diet in timely manner and followup for education needs when out of ICU.
--- NOTE | 2018-09-06 08:59 | 2DMMODE ---
[facility] [place] [address] 2 D/M-MODE ECHOCARDIOGRAM Name: ALISHA PALMA Room #: 240-P ADM IN M.R.#: [id number] Admission: 08/31/18 Attend Phys: David Gonzales MD Discharge: Date of : 42 Date of Service: 09/06/18 0859 Report #: [id number] THIS REPORT FOR: //name// APPROVED REPORT Study performed: 09/06/2018 07:44:02 EXAM: Comprehensive 2D, Doppler, and color-flow Echocardiogram Patient Location: ICU Room #: 240 Status: stat BSA: 2.02 HR: 100 bpm BP: 106/54 mmHg Rhythm: NSR/tachy Other Information Study Quality: Fair/protocol not followed, all measurements not all taken. Technically limited study due to post operative dressings, patient on ventilator, inability to position patient. Indications STAT echo post-op CABG. Rule out pericardial effusion. LV function. Last echo done pre-op on 09/01/18. 2D Dimensions RVDd: 31.22 mm IVSd: 8.81 (7-11mm) LVDd: 44.80 mm PWd: 7.86 (7-11mm) LVDs: 36.29 (25-40mm) Aortic Root: 32.19 mm Volumes Left Atrial Volume (Systole) Single Plane 4CH: 38.62 mL Single Plane 2CH: 40.31 mL LA ESV Index: 22.00 mL/m2 Aortic Valve AoV Peak Skip.: 1.32 m/s AO Peak Gr.: 7.02 mmHg LVOT Max P.25 mmHg LVOT Max V: 0.90 m/s Mitral Valve [facility] [address] [place] [address] 2 D/M-MODE ECHOCARDIOGRAM Name: ALISHA PALMA Room #: [address] [place] [address] IN ..#: [id number] Admission: 08/31/18 Attend Phys: David Gonzales MD Discharge: Date of : 42 Date of Service: 09/06/18 0859 Report #: [id number] E/A Ratio: 0.5 MV Decel. Time: 202.35 ms MV E Max Skip.: 0.36 m/s MV A Skip.: 0.67 m/s MV PHT: 58.68 ms Tricuspid Valve TR Peak Skip.: 2.50 m/s TR Peak Gr.: 25.04 mmHg Left Ventricle The left ventricle is normal size. Mild basal septal hypertrophy is present. Left ventricular systolic function is severely decreased. Global hypokinesis. Septal and inferior wall akinesis. LVEF is 25%. Mild diastolic dysfunction is present (impaired relaxation pattern). Right Ventricle The right ventricle is normal size. The right ventricular systolic function is normal. Atria The left atrium size is normal. The right atrium size is normal. Aortic Valve The aortic valve is not well visualized. Trace aortic regurgitation. There is no aortic valvular stenosis. Mitral Valve The mitral valve is normal in structure. Mild mitral regurgitation. Tricuspid Valve The tricuspid valve is normal in structure. Mild tricuspid regurgitation. Estimated PAP is 25mmHg plus the right atrial pressure. Pulmonic Valve Pulmonic valve is not well visualized. Great Vessels The aortic root is normal in size. The inferior vena cava is not well visualized. Pericardium [facility] [address] [place] [address] 2 D/M-MODE ECHOCARDIOGRAM Name: ALISHA PALMA Room #: 240-P [facility] IN M.R.#: [id number] Admission: 08/31/18 Attend Phys: David Gonzales MD Discharge: Date of : 42 Date of Service: 09/06/1859 Report #: [id number] There is no pericardial effusion. <Conclusion> Limited study Left ventricular systolic function is severely decreased. Global hypokinesis. Septal and inferior wall akinesis. LVEF is 25%. Mild diastolic dysfunction The aortic valve is not well visualized. No aortic valvular stenosis. Trace aortic regurgitation. The mitral valve is normal in structure. Mild mitral regurgitation. There is no pericardial effusion. <ELECTRONICALLY SIGNED> By: Dakotah Oneil MD, [facility] 09/06/18858 8 8 Dakotah Oneil MD, FACC /INF
--- NOTE | 2018-09-06 09:41 | EKG ---
[place] [address] [facility] [place] [address] ELECTROCARDIOGRAM REPORT Name: ALISHA PALMA Room #: 240-P ADM IN M.R.#: [id number] Admission: 08/31/18 Attend Phys: David Gonzales MD Discharge: Date of : 42 Report #: [id number] THIS REPORT FOR: //name// [facility] [place] [place] Test Date: 2018-09-05 Test Time: 19:14:35 Pat Name: ALISHA PALMA Department: Room: 240 P Gender: F Loans Consultant: Mony MEEKS : 1940 Requested By: John Akins Order Number: [id number] MD: Dakotah Oneil Measurements Intervals [place] Rate: 90 P: 37 CA: 156 QRS: -11 QRSD: 90 T: 141 QT: 314 QTc: 384 Interpretive Statements Sinus rhythm Inferior infarct, old T-wave abnormality, consider lateral ischemia Compared to ECG 09/01/2018 08:59:54 No significant changes Electronically Signed On 09-06-2018 9:41:37 APPLICATIONS SUPPORT ENGINEER by Dakotah Oneil [email or web address] <ELECTRONICALLY SIGNED> By: Dakotah Oneil MD, [facility] 09/06/18 0941 13 13 Dakotah Oneil MD, [facility] /EPI
--- NOTE | 2018-09-06 09:44 | EKG ---
[address] [place] [address] ELECTROCARDIOGRAM REPORT Name: ALISHA PALMA Room #: 240-P ADM IN M.R.#: [id number] Admission: 08/31/18 Attend Phys: David Gonzales MD Discharge: Date of : 41 Report #: [id number] THIS REPORT FOR: //name// [facility] Test Date: 2018-09-06 Test Time: 06:48:37 Pat Name: ALISHA PALMA Department: Room: 240 P Gender: F Binder Technician: : 1940 Requested By: John Akins Order Number: [id number] MD: Dakotah Oneil Measurements Intervals [place] Rate: 100 P: 42 NC: 136 QRS: -4 QRSD: 81 T: 136 QT: 318 QTc: 411 Interpretive Statements Sinus tachycardia Inferior infarct, old Nonspecific ST and T wave abnormality Compared to ECG 09/01/2018 08:59:54 No significant change was found Electronically Signed On 09-06-2018 9:44:06 DESKTOP OPERATOR by Dakotah Oneil [email or web address] <ELECTRONICALLY SIGNED> By: Dakotah Oneil MD, [facility] 09/06/18 0944 Dakotah Oneil MD, [facility] /EPI
--- NOTE | 2018-09-06 10:22 | NUR ---
POD #1 CABG X5. REMAINS INTUBATED, FOLLOWS COMMANDS WHEN PROPOFOL LIGHTENED. ALSO ON LEVOPHED AND DOBUTAMINE GTTS. REQUIRED PRBCS. PT'S SON PATRICIA AT BEDSIDE. CM TO FOLLOW FOR DC PLANNING, UNCLEAR DC PLAN AT PRESENT.
[2018-09-06 16:01] LABS: HCO3 22.3 mmol/L (22.0-26.0); PCO2 32.2 mmHg (35.0-45.0); PO2 65.6 mmHg (80.0-100.0); pH 7.458 (7.360-7.450); sO2 94.1 % (92.0-98.0)
--- NOTE | 2018-09-06 16:59 | CATHLAB ---
[facility] [address] [place] [address] INVASIVE PROCEDURE REPORT Name: ALISHA PALMA Room #: 240-P ADM IN ..#: [id number] Admission: 08/31/18 Attend Phys: David Gonzales MD Discharge: Date of : 42 Date of Service: 09/06/18 1658 Report #: [id number] THIS REPORT FOR: //name// APPROVED REPORT Study performed: 09/03/2018 07:25:54 Patient Details Patient Status: In-Patient Room #: 240 The patient is a 77 year-old female Event Personnel Baldomero Parekh Manager E [employer], Jerad Burch RN RN, Kandy Cullen Mahmood, Amber Monitor Procedures Performed Art Access - R femoral artery* Kalen Access - R femoral vein 43471 Initial Mod Sed Same Phys/QHP Gr5y 844809 86007 Mod Sed Same Phys/QHP Ea 201215 Right and Left Heart Cath w/or w/o Coronarie [id number] [facility] Aortogram Abdominal Peripheral Angio 982647 Hemostasis with Manual pressure Indication Arrhythmia, Chest pain Procedure Narrative The patient was brought urgently to the Cardiac Catheterization Laboratory and was prepped and draped in a sterile manner. The Right Groin^ was infiltrated with 1% Lidocaine subcutaneous anesthesia. A Right Heart Catheterization was performed with a 7 Fr. [place]Jomar catheter and pressure were recorded. Cardiac outputs were obtained by the Thermal Dilution method. A PINNACLE 6FR Sheath #[id number] sheath was inserted into the RFA^. Coronary angiography was performed using coronary diagnostic catheters. The right coronary system was accessed and visualized with a JR 4 catheter. The left coronary system was accessed and visualized with a JL 4 catheter. The left ventricle was accessed and visualized with a Pigtail catheter. Left ventriculogram was performed in COLEMAN projection. An aortogram of the abdominal aorta was performed. Pre-demployment femoral angiogram was performed . Hemostasis was obtained with manual pressure following sheath removal without any complications. The patient tolerated the procedure well and there were no complications associated with the procedure. There was no hematoma. Intraoperative Conscious Sedation [address] [address] INVASIVE PROCEDURE REPORT Name: ALISHA PALMA Room #: 240-P [facility] IN ..#: [id number] Admission: 08/31/18 Attend Phys: David Gonzales MD Discharge: Date of : 42 Date of Service: 09/06/18 1658 Report #: [id number] Sedation start time: 08:49 Case end Time: 09:37 Fentanyl 50 mcg Versed 1 mg Fluoro Time: 2.41 minutes Dose: DAP 546.00 cGycm2 546 mGy Contrast Type and Amount: Omnipaque 180 ml Hemodynamics The right atrial mean pressure is 18 mmHg. The right ventricular pressure is 56/7 mmHg. The pulmonary artery pressure is 50/23 mmHg with a mean of 37 mmHg. The mean pulmonary capillary wedge pressure is 21 mmHg. The aortic pressure is 124/62 mmHg with a mean of 46 mmHg. The left ventricular pressure is 128/11 mmHg with a mean of mmHg. The left ventricular end diastolic pressure is 34 mmHg. The cardiac output using thermo method is 3.30 L/min. The cardiac index using thermo method is 1.79 L/min/m2. Conclusion #1 successful right heart catheterization with moderate elevation pulmonary pressures and wedge pressure cardiac index 1.7 #2 moderate left ventricular dilatation with mildly severe global hypokinesis and akinesis in the mid distal inferior wall EF 20-25% #3 abdominal aortogram revealing a small infrarenal aortic aneurysm with significant aortic ectasia and calcification. No significant stenosis. Moderate disease in the right common iliac and mild disease in bilateral renal arteries #4 mildly calcified left main with mild irregularity 30% proximal lesion giving rise to LAD and circumflex #5 LAD occludes proximally after diagonal takeoff. High-grade disease in the proximal diagonal in addition although a moderate area of distribution #6 circumflex OM is nondominant but moderate in size. High-grade subtotal proximal lesion with a large area of calcification the first OM is subtotally occluded but fills the distal OM well preserved #6 the dominant right coronary artery is proximally totally occluded a long segment occlusion with reconstitution of a well preserved PDA HAL. Via predominantly bridging collaterals. This vessel then fills briskly the LAD This LAD appears fairly well preserved from the retrograde collateral filling Recommendations and plan: Patient needs aggressive diuresis. CV surgical consultation. I suspect there is predominantly viable myocardium here except for a portion of the inferior wall. Expect improvement in LV function post-bypass surgery. [facility] [address] [place] [address] INVASIVE PROCEDURE REPORT Name: ALISHA PALMA Room #: 240-P ADM IN M.R.#: [id number] Admission: 08/31/18 Attend Phys: David Gonzales MD Discharge: Date of : 42 Date of Service: 09/06/181657 Report #: [id number] high-grade nature of the disease and calcification prohibited any kind of percutaneous intervention. We'll aggressively diurese and ask for CV surgical consultation. <ELECTRONICALLY SIGNED> By: Baldomero Parekh MD, FACC 09/06/181657 57 57 Baldomero Parekh MD, FACC /INF
[2018-09-06 17:51] LABS: BE(vivo) -0.8 mmol/L (-2 to +3); HCO3 22.2 mmol/L (22.0-26.0); PCO2 30.9 mmHg (35.0-45.0); pH 7.475 (7.360-7.450); sO2 94.5 % (92.0-98.0)
--- NOTE | 2018-09-06 18:07 | NUR ---
ONE UNIT PRBCS TRANSFUSED THIS AM. PT CONT TO HAVE LOW CO/CI. DR PEREZ AND ALON UPDATED, DECLINED WANTING BALLOON PUMP. THROUGHOUT AFTERNOON PT'S HEMODYNAMICS IMPROVED, LEVO GTT OFF. SEDATION VACATION PERFORMED AND CPAP TRIAL. ABG CALLED TO DR PEREZ AND PT EXTUBATED AT 1635. PT ON 6L NC HUMIDIFIED O2. PT A/O X 4. C/O STERNAL PAIN, PRN PAIN MED EFFECTIVE. RT FEMORAL GABI D/C'D, PRESSURE HELD FOR 15 MINUTES. MOISE WRAP FROM LLE REMOVED AND DRESSING CHANGED. PT PROGRESSING TOWARD POC GOALS
[2018-09-07] VITALS (29 sets, daily range): BP systolic 81–149; BP diastolic 25–123
[2018-09-07 05:34] LABS: HEMATOCRIT 26.6 % (37.0-47.0); MCH 28.3 pg (26.0-34.0); MCHC 33.8 g/dL (28.0-37.0); MCV 83.7 fL (80.0-100.0); RBC 3.18 mil/uL (4.20-5.00); RDW 16.1 % (10.5-14.5)
[2018-09-07 05:36] LABS: CREATININE 0.7 mg/dL (0.6-1.0); POTASSIUM 3.5 mmol/L (3.5-5.1)
--- NOTE | 2018-09-07 06:31 | NUR ---
PT AOX4. FOLLOW COMMANDS. MEDICATED FOR PAIN. AFEBRILE. VSS. BP STABLE. ON DOBUTAMINE. INSULIN GT D/C, ON SLIDING SCALE. URINE OUTPUT NOTED. SWAN LINE IN PLACE. RIGHT ART LINE IN PLACE. SLOWLY PROGRESSING TOWARDS GOALS. WILL CONTINUE TO MONITOR.
--- NOTE | 2018-09-07 10:39 | NUR ---
PT EXTUBATED YESTERDAY AFTERNOON. PLANS TO WORK WITH THERAPY TODAY. NO W/E DC PLANNED AND UNCLEAR DC PLAN AT PRESENT, LIKELY NEED FOR POST ACUTE REHAB STAY.
--- NOTE | 2018-09-07 17:53 | NUR ---
PT IS A/OX4 WITH MOMENTS OF CONFUSION, SL, ART LINE AND SWAN OUT, UP TO CHAIR FOR 4.5 HOURS. DIET ADVANCED AND TOLERATING WELL. MODERATE URINE OUTPUT. CHEST TUBES IN PLACE TO SUCTION -20 WILL BE REMOVED TOMORROW. VSS. AFEBRILE.
[2018-09-08] VITALS (24 sets, daily range): BP systolic 104–150; BP diastolic 47–113
[2018-09-08 06:08] LABS: HEMATOCRIT 25.2 % (37.0-47.0); HEMOGLOBIN 8.5 gm/dL (12.0-15.0); MCH 29.1 pg (26.0-34.0); MCV 85.8 fL (80.0-100.0); RBC 2.93 mil/uL (4.20-5.00); RDW 16.4 % (10.5-14.5); WBC 14.1 thou/uL (4.0-11.0)
--- NOTE | 2018-09-08 06:09 | NUR ---
Pt slept well through the night with stable VS and adequate SpO2 on 3L of O2. PRN hydrocodone given for c/o chest "soreness" with desired effect achieved. Taking PO well and urine output remains marginal for shift. Chest tube drainage minimal and large amount of AICHA drainage remains. Am lab results pending, continue with POC.
[2018-09-08 06:24] LABS: ALBUMIN 2.3 g/dL (3.4-5.0); CREATININE 0.8 mg/dL (0.6-1.0); TOTAL BILIRUBIN 1.8 mg/dL (<0.1-1.0); TOTAL PROTEIN 4.7 g/dL (6.4-8.2)
--- NOTE | 2018-09-08 14:34 | HC ---
[facility] [place] [address] [place] [address] CONSULTATION Name: ALISHA PALMA Room #: 240-P ADM IN M.R.#: [id number] Admission: 08/31/18 Attend Phys: David Gonzales MD Discharge: Date of : 42 Report #: [id number] THIS REPORT FOR: //name// CC: David Naranjo DATE OF SERVICE: 09/03/2018 We were asked by Dr. Parekh to see the patient. HISTORY OF PRESENT ILLNESS: The patient is a 77-year-old admitted with weakness, dizziness and coffee-ground emesis. The patient has a history of chronic renal dysfunction, hypertension, anemia, hyperlipidemia and diabetes mellitus. The patient states that earlier in the week before admission, she was brought to [facility] for dehydration and diagnosed with renal dysfunction and urinary tract infection. The patient states she was on ibuprofen daily and this was stopped. We note that in the Emergency Department on admission here, creatinine was 2.9 and potassium was 6.5. There is an episode of dark vomiting in the ER, which was heme positive. Blood pressures were soft in the 80s drifting into the 60s according to Dr. Gonzales's note. PAST MEDICAL HISTORY: As mentioned includes acute kidney injury, hyperkalemia, thrombocytopenia, upper GI bleed, hypertension, diabetes mellitus, colon polyps, hypothyroidism, chronic back pain, hypercholesterolemia. ALLERGIES: PENICILLIN CAUSES RASH AND ITCHING, SULFA CAUSES RASH AND TAPE CAUSES RASH. MEDICATIONS: On admission, Lasix, iron, spironolactone, atorvastatin, rosuvastatin, glipizide, potassium, aspirin, vitamin E, raloxifene, levothyroxine, benazepril, sitagliptin, ibuprofen and metformin. FAMILY HISTORY: The patient denies important family history of precocious coronary artery disease. SOCIAL HISTORY: The patient lives on [address] [place] [address] with her son. She claims to be a never drinker, never smoker. Not . REVIEW OF SYSTEMS: According to the ER note, review of systems was not obtainable at that time due to mental status. CONSTITUTIONAL: In my discussion with the patient, other than the acute illness, the patient denies general problems with weight change, fever or chills. EYES: Denies recent visual change. [address] [address] CONSULTATION Name: ALISHA PALMA Room #: 240-P [facility] IN M.R.#: [id number] Admission: 08/31/18 Attend Phys: David Gonzales MD Discharge: Date of : 41 Report #: [id number] HEENT: No headaches. No nasal discharge. No sore throat, no hearing problems. PULMONARY: Denies shortness of breath, cough or sputum production. CARDIAC: Denies angina, no palpitations. GASTROINTESTINAL: Other than the acute event, no nausea, vomiting, diarrhea or blood. GENITOURINARY: No urinary frequency or blood. MUSCULOSKELETAL: No bone or joint problems. SKIN: No rash or infection. HEMATOLOGIC: No anemia or easy bruisability. ENDOCRINE: Has diabetes and hypothyroidism, but denies symptoms, specifically related to those. PHYSICAL EXAMINATION: GENERAL: The patient is in bed post cardiac catheterization. She is drowsy from the catheterization, but with some verbal stimulation, she is quite engaging. VITAL SIGNS: Heart rate 65, respiratory rate 16, blood pressure 115/63, pulse ox 99%, temperature 37.2. HEENT: No scleral icterus. I see no arcus. NECK: No mass, no bruit. CHEST: Clear to auscultation anteriorly. HEART: Rhythm regular, no murmur. ABDOMEN: Soft, no mass, no tenderness. SKIN: Some ecchymosis in the right wrist; otherwise, no rash or infections seen. MUSCULOSKELETAL: No bone or joint asymmetry or deformity. VASCULAR: No obvious varicose veins, 1+ distal pulses. PSYCHIATRIC: Shows insight into problem and answers questions appropriately. NEUROLOGIC: No motor or sensory dysfunction, but the patient is in bed post catheterization. IMPRESSION: We note that cardiac catheterization showed severe 3-vessel coronary artery disease, ventricular function is reduced. Echo shows mild mitral incompetence related to type 3B restrictive motion and probable poor coaptation. I have recommended coronary artery bypass surgery. Risks include, but are not limited to, bleeding, infection, anesthesia risks, heart problems, lung problems, stroke and . Options and alternatives were reviewed. I have discussed the case with Dr. Parekh who sent the patient for consideration and feels that surgery is in her best interest. The patient understands all of this and agrees. We hope to perform surgery on Monday. Thank you for the consultation. <ELECTRONICALLY SIGNED> By: John Akins MD 09/08/18 1434 1327 40 John Akins MD /nt
--- NOTE | 2018-09-08 14:34 | O ---
[facility] [place] [address] [place] [address] OPERATIVE REPORT Name: ALISHA PALMA Room #: 240-P ADM IN M.R.#: [id number] Admission: 08/31/18 Attend Phys: David Gonzales MD Discharge: Date of : 42 Report #: [id number] THIS REPORT FOR: //name// CC: David Naranjo DATE OF SERVICE: 09/05/2018 PREOPERATIVE DIAGNOSIS: Coronary artery disease. POSTOPERATIVE DIAGNOSIS: Coronary artery disease. PROCEDURES: Coronary artery bypass x 5 including left internal mammary artery to left anterior descending artery; saphenous vein to diagonal, marginal 1, and marginal 2 and saphenous vein to posterior descending artery; endoscopic and open harvest, left greater saphenous vein and right femoral artery line placement. SURGEON: John Akins M.D. CYANIDE POT HARDENER: RAHEEM Parker. ANESTHESIA: General. INDICATIONS: The patient is a 77-year-old with coronary artery disease, catheterization by Dr. Parekh on Monday revealed total occlusion of the right coronary artery and the left anterior descending artery and high-grade lesions in the diagonal and circumflex arteries. Left ventricular function is reduced with an ejection fraction in the 20%-25% range. FINDINGS AND TECHNIQUE: After general anesthesia was established, saphenous vein was harvested using a combination of open and endoscopic approach and prepared for use as a conduit. Exposure was obtained through median sternotomy. Left internal mammary artery was harvested. Pericardial well was made. Cannulation sutures were placed. Heparin was given. Aorta was cannulated. Right atrium was cannulated. Cardioplegia needle was positioned in the aortic root. Retrograde cardioplegic catheter was placed in coronary sinus. Cardiopulmonary bypass was established. The aorta was cross clamped. Antegrade and retrograde cardioplegia were given. Ice was poured in the pericardial well. The heart was stopped. During electromechanical arrest, the distal anastomoses were performed and end-to-side anastomosis was made between vein and the posterior descending artery. Cold cardioplegia was given. A separate segment of vein was sewn in end-to-side fashion to the large distal marginal artery. Cold cardioplegia was [facility] [address] [place] [address] OPERATIVE REPORT Name: ALISHA PALMA Room #: 240-P [facility] IN .R.#: [id number] Admission: 08/31/18 Attend Phys: David Gonzales MD Discharge: Date of : 41 Report #: [id number] given. Same segment of vein was sewn in [id number] to the long more proximal marginal artery. Cold cardioplegia was given. The same segment of vein was sewn in [id number] fashion to the large diagonal artery. Cold cardioplegia was given. Left internal mammary artery was sewn in end-to-side fashion to the left anterior descending artery. This was a relatively small artery and was diffusely diseased. The anastomosis was checked with the temperature technique. Cold cardioplegia was given. Two proximal anastomoses were performed. When these were complete, warm retrograde cardioplegia was given followed by warm continuous blood to the coronary sinus. When this infusion was complete, the crossclamp was removed, de-airing maneuvers were performed and the anastomoses were inspected and found to be satisfactory. As the patient warmed, nice cardiac activity resumed, chest tubes and pacing wires were placed, a marker was placed around the proximal anastomosis. When the patient was warmed, she was weaned from cardiopulmonary bypass. Unfortunately, at this point, radial artery pressure did not seem to correlate with central aortic pressure and therefore, a right femoral line was placed using Seldinger technique. Gradually, the patient had improvement in hemodynamics and all the pressure seemed to improve and equalize. There was some evidence of coagulopathy and a component therapy was used to treat the results obtained from the laboratory. When hemostasis was satisfactory, chest was closed in the usual fashion and the patient was taken to the intensive Care Unit in good condition. All counts were reported as correct. <ELECTRONICALLY SIGNED> By: John Akins MD 09/08/18 1434 01 45 John Akins MD /nt
--- NOTE | 2018-09-08 19:15 | NUR ---
Pt alert and oriented throughout the day. Pt son at bedside today and multiple family members by to visit. Sinus rhythm. O2 at 2-3 liters per nasal cannula. Weak effort with IS. Encouraged to use hourly. Pt tolerating solid foods. Hartmann removed approx 1530. Pt sat on [facility] approximately 1730 but was unable to void. Chest tubes and pacing wire were removed by Dr Naik this afternoon. Pt was assisted up to bedside chair by PT and RN. Back to bed after dinner. Left leg is edematous and ecchymotic. Red sanguienous drainage from AICHA drain. Drain was emptied four times this shift-see I/O. Adequate pain control with single Hydrocodone this shift. Orders in place to dc introducer. Ran out of time to remove. Task passed along to RN assuming care. Pt is progressing toward goals.
[2018-09-09] VITALS (23 sets, daily range): BP systolic 84–131; BP diastolic 48–91
--- NOTE | 2018-09-09 04:49 | NUR ---
PT RESTING IN BED. APPEARS TO BE SLEEPING. PT SR ON MONITOR. PT CONTINUES ON O2 THERAPY. PT LEFT LOWER LEG AICHA REMAINS IN TACT AND DRAINING. PT REQUIRED ONE DOSE OF PAIN MEDS DURING SHIFT. PT NEEDS ENCOURAGEMENT TO C&DB AND CONTINUE USE OF IS.
--- NOTE | 2018-09-09 19:00 | NUR ---
Pt alert and oriented today. Pt up to bedside chair from mid-morning until after dinner. Pt reminded to practice sternal precautions when getting in and out of bed/chair. Sinus rhythm. BP stable. O2 at 3 liters. Breath sounds diminised in bases. Pt getting IS to approximately 500 ml. Tolerating meals. No BM today. Voided two unmeasured amounds of urine. [place] introducer dc'd this morning. Surgical incisions are intact. Pt has bruising along left leg incisions and right thigh. J. P. leg drain is patent. Adequate pain control. Son present today. Report given to RN assuming care. Pt has transfer order but no bed available.
[2018-09-10] VITALS (17 sets, daily range): BP systolic 90–129; BP diastolic 39–85
--- NOTE | 2018-09-10 05:17 | NUR ---
PT CURRENTLY RESTING COMFORTABLE IN BED. REMAINS ON 2L NC SATS 96% SR ON MONITOR. PT AFEBRILE AND VSS. PT WORKING ON IS BUT NEED REINFORCEMENT AND RE-EDUCATED ON ACCURATE USE EACH TIME. PT AM LABS TO BE DRAWN AND REVIEWED.
[2018-09-10 05:55] LABS: HEMATOCRIT 26.7 % (37.0-47.0); HEMOGLOBIN 8.9 gm/dL (12.0-15.0); MCH 28.5 pg (26.0-34.0); MCHC 33.3 g/dL (28.0-37.0); MCV 85.8 fL (80.0-100.0); RBC 3.11 mil/uL (4.20-5.00); RDW 16.2 % (10.5-14.5); WBC 12.1 thou/uL (4.0-11.0)
[2018-09-10 06:00] LABS: CALCIUM 8.2 mg/dL (8.5-10.1); CREATININE 0.6 mg/dL (0.6-1.0); POTASSIUM 3.6 mmol/L (3.5-5.1)
--- NOTE | 2018-09-10 18:21 | NUR ---
PT ORIENTED TO ROOM AND UNIT. BED LOW AND LOCKED, SIDE RAILS UP X 3, CALL LIGHT IN REACH. SON AT BEDSIDE. WILL CONTINUE TO ASSESS.
--- NOTE | 2018-09-10 19:25 | NUR ---
PATIENT ALERT AND ORIENTED X4, NO COMPLAINTS OF PAIN. SINUS RHYTHM ON DISPENSARY CLERK. ON 2L NASAL CANNULA, SHORTNESS OF BREATH WITH MOVEMENT. TOLERATING DIET. UP WITH STANDBY ASSISTANCE TO BEDSIDE COMMODE. PATIENT WALKED UNIT WITH PHYSICAL THERAPY AND WALKER X2. J/P TO LEFT LEG INTACT. CHEST AND LEG DRESSINGS CHANGED. BLOOD SUGAR MONITORED. PATIENT AND SON EDUCATED ON THE PLAN OF CARE. REPORT CALLED TO CCU RN, PATIENT TRANSFERRED.
[2018-09-11 00:10] VITALS: BP 102/50
--- NOTE | 2018-09-11 03:12 | NUR ---
ASSUMED PT CARE AT 1900. PT A/OX4, VITAL SIGNS STABLE, ASSESSMENT CHARTED. PAIN ADEQAUTELY MANAGED WITH PAIN MEDICATION. PT ABLE TO USE BEDSIDE COMMODE. TOLERATES ACTIVITY. DRESSING ON LE CHANGED. AICHA DRAIN PATENT. DRAINING SANGUINEOUS FLUID. PT RESTED WELL THROUGH THE NIGHT. PROGRESSING TOWARD PLAN OF CARE. WILL CONTINUE TO MONITOR.
[2018-09-11 05:18] VITALS: BP 107/55
[2018-09-11 08:00] VITALS: BP 97/52
[2018-09-11 12:00] VITALS: BP 97/43
--- NOTE | 2018-09-11 13:13 | NUR ---
met with patient to discuss dc planning, son at bedside. Reviewed innetwork facilities. Patient and son interested in [facility] for post acute care dc transportation planner to send referral for review.
[2018-09-11 16:00] VITALS: BP 93/63
--- NOTE | 2018-09-11 16:45 | NUR ---
FAXED REFERRAL TO CM SPOKE WITH GARRETT IN ADM, SHE RECEIVED REFERRAL AND CAN ACCEPT AT [facility]. SHE WILL SUBMIT FOR AUTH. GAP TO FOLLOW.
--- NOTE | 2018-09-11 19:49 | NUR ---
ASSUMED CARE OF PT AT 0700. PT A&OX4, UP WITH GAIT BELT AND WALKER TO BSC. PT WAS ON ROOM AIR BUT DESATS WITH ACTIVITY. RESP THERAPY PLACED PT ON 2L O2 PER NASAL CANNULA. PT CAN BE FORGETFUL AND NEEDS STRONG REINFORCEMENT ON STERNAL PRECAUTIONS. PT HAS SON IN ROOM AT ALL TIMES. BLOOD PRESSURE LOW, PT WAS ASYMPTOMATIC AND HAS TRENDED LOW. WILL CONT WITH POC.
[2018-09-11 20:05] VITALS: BP 114/56
--- NOTE | 2018-09-12 03:16 | NUR ---
ASSUMED CARE OF PATIENT AT 1900. VSS, AFEBRILE. C/O PAIN TO LEFT SIDE ONE TIME, GIVEN PRN HYDROCODONE. UP TO BSC. VERY COMPLIANT WITH PT/OT INSTRUCTIONS. REMINDED TO USE MORE STERNAL PRECAUTIONS. NO S/S OF DISTRESS. AICHA DRAIN FUNCTIONING WELL. PROGRESSING TOWARDS POC GOALS.
[2018-09-12 04:14] VITALS: BP 110/49
[2018-09-12 06:27] LABS: CALCIUM 8.4 mg/dL (8.5-10.1); CREATININE 0.7 mg/dL (0.6-1.0); POTASSIUM 3.8 mmol/L (3.5-5.1)
[2018-09-12 08:03] VITALS: BP 93/71
[2018-09-12 11:37] VITALS: BP 94/44
[2018-09-12 16:00] VITALS: BP 97/50
--- NOTE | 2018-09-12 16:11 | NUR ---
ASSUMED CARE OF PT AT 0700. PT A&OX4, FORGETFUL AT TIMES. PT DRESSINGS ON LEFT LEG CHANGED TODAY AND HARVEST SITES WEEPING COPIOUSLY. 1CM BLISTERS WERE NOTICED ON THE CALF. A WOUND WAS DISCOVERED ON THE PTS MID LEFT BACK AND WOUND CARE WAS CONSULTED PER PROTOCOL. A PICTURE WAS TAKEN FOR CHART. PT CONTINUES TO HAVE LOW BLOOD PRESSURE, ASYMPTOMATIC, AND DR. DURAN MADE AWARE DURING HIS ROUNDS. WILL CONT WITH POC.
[2018-09-12 19:33] VITALS: BP 105/57
--- NOTE | 2018-09-13 01:53 | NUR ---
0150 - JUD TO REPORT. INCISIONAL WOUND TO LEFT LOWER THIGH IS DRAINING A SCAN AMOUNT OF SS DRAINAGE. NO FOUL ODOR OR PURULENT DRAINAGE NOTED.
[2018-09-13 04:28] VITALS: BP 118/65
--- NOTE | 2018-09-13 07:13 | NUR ---
TOTAL DRAINAGE FOR SUBSTATION DESIGNER 09/12- = 90 ML
[2018-09-13 07:30] VITALS: BP 105/63
--- NOTE | 2018-09-13 13:39 | NUR ---
Followup: remains on heart healthy diet s/p CABG. Good appetite. Wts up and pt has required thoracentesis. Also back wound and drainage from left leg-wound care nurse to see. Eating high protein foods, BG controlled, and no questions regarding diet. Geriatric LUMBER TRIPPER following, +sarcopenia with decreased babcock tester strength. Low nutrition risk
[2018-09-13 15:55] VITALS: BP 99/71
--- NOTE | 2018-09-13 16:04 | NUR ---
WOUND CONSULT: PT. WAS SEEN TODAY BY DR. ESQUIVEL AND MYSELF. PT. HAS AN ABRASION TO HER BACK WITH NO SIGNS OR SYMPTOMS OF INFECTION. PT. HAS SOME SWELLING TO HER LEFT LEG AND WILL WRAP HER LEFT FROM TOE TO KNEE. RECOMMENDATIONS: SEE PLAN OF CARE. PT. AND STAFF NURSE WERE INSTRUCTED ON PLAN OF CARE.
--- NOTE | 2018-09-13 18:37 | NUR ---
ASSESSMENT CHARTED. PT ALERT AND ORIENTED WITH FORGETFULNESS. PLEASANT AND COOPERATIVE WITH CARES. HAD LOW BP THIS SHIFT. PROVIDER AWARE. HAD THORACENTESIS THIS AM. WOUND CARE PROVIDED BY WOUND NURSE. NO RESPITORY OR CARDIAC DISTRESS NOTED. WILL CONTINUE TO MONITOR.
[2018-09-13 20:06] VITALS: BP 126/73
--- NOTE | 2018-09-13 22:39 | NUR ---
2240 - PT LAYING IN BED IN NAD. REQUESTED PAIN MEDICINE FOR BACK. DENIES OTHER NEEDS AND COMPLAINTS.
[2018-09-14 04:30] VITALS: BP 97/52
--- NOTE | 2018-09-14 07:20 | NUR ---
15 ML DRAINAGE FROM [facility] DRAIN OVER THE NIGHT
[2018-09-14 07:30] VITALS: BP 128/62
[2018-09-14] MEDS ORDERED: DIGOXIN250 MCG PO (09:22)
[2018-09-14] MEDS ORDERED: PACERONE 200 M200 M1 PO (09:22)
[2018-09-14] MEDS ORDERED: CARVEDILOL3.125 MG PO (09:23)
[2018-09-14] MEDS ORDERED: ATORVASTATIN CA40 MG PO (09:23)
[2018-09-14] MEDS ORDERED: HYDROCODONE-AP1 EAC6 PO (09:24)
[2018-09-14] MEDS ORDERED: PANTOPRAZOLE SO40 M1 PO (09:29)
[2018-09-14] MEDS ORDERED: CEFUROXIME250 MG PO (09:30)
[2018-09-14 11:03] LABS: CALCIUM 8.8 mg/dL (8.5-10.1); CREATININE 0.8 mg/dL (0.6-1.0); POTASSIUM 4.2 mmol/L (3.5-5.1)
[2018-09-14 11:09] VITALS: BP 99/48
--- NOTE | 2018-09-14 12:06 | NUR ---
Pt is dc ready per the attending. [facility]. They requested updated clinical which was faxed by the dc program services planner. They are following up on insurance auth for admission today. Son is at bedside this am and with her during physician rounding. Chart copy in progress.
--- NOTE | 2018-09-14 13:30 | NUR ---
PT. DISCHARGING TO FAXED DC ORDERS/SUMMARY TO FACILITY SPOKE WITH GARERTT IN ADM.SHE RECEIVED DC ORDERS AND ARRANGED TRANSPORT FOR [phone] TODAY. DCP NOTIFIED PT. AND IN RM OF TIME OF TRANSPORT. UNIT NOTIFIEND AND CHART COPY PER US. RN TO CALL REPORT TO [phone].
[2018-09-14 15:49] VITALS: BP 91/48
--- NOTE | 2018-09-14 16:51 | NUR ---
WOUND FOLLOW UP: PT. WAS SEEN TODAY BY DR. ESQUIVEL AND MYSELF. PT. WOUNDS ARE STABLE AT THIS TIME. RECOMMENDATIONS: CONTINUE WITH CURRENT PLAN OF CARE. PT. AND STAFF NURSE WERE INSTRUCTED ON PLAN OF CARE.
--- NOTE | 2018-09-14 17:53 | NUR ---
ASSESSMENTS COMPLETED AND DOCUMENTED. NO S/SX OF CARDIAC OR RESP DISTRESS. IJ AND TELE REMOVED. NO COMPLAINTS VOICED. REPORT CALLED TO JOSE AT [facility]. ALL BELONGINGS WITH PT AND FAMILY MEMEBER. ESCORTED OUT BY TRANSPORTATION WITH PACKET.
== END 2018-09-14 17:45 | DRG 233 ==
LOC: ER 10:28 → EDBD 10:28 → ICU 13:41 → EROBS 13:41 → ICU 16:12 → 2N 09-10 19:37
PROVIDERS: Emergency Medicine; Hospitalist; Internal Medicine; Internal Medicine Cardiovascular Disease; Internal Medicine Nephrology; Nurse Practitioner; Nurse Practitioner Acute Care; Nurse Practitioner Adult Health; Nurse Practitioner Family; Surgery Vascular Surgery; ADMIT Hospitalist
PROC: 0DJ08ZZ Inspection of Upper Intestinal Tract, Via Natural or Artificial Opening Endoscopic (ICD-10-PCS; principal; 2018-09-01)
PROC: B41D1ZZ Fluoroscopy of Aorta and Bilateral Lower Extremity Arteries using Low Osmolar Contrast (ICD-10-PCS; 2018-09-03)
PROC: 4A023N8 Measurement of Cardiac Sampling and Pressure, Bilateral, Percutaneous Approach (ICD-10-PCS; 2018-09-03)
PROC: B2111ZZ Fluoroscopy of Multiple Coronary Arteries using Low Osmolar Contrast (ICD-10-PCS; 2018-09-03)
PROC: B2151ZZ Fluoroscopy of Left Heart using Low Osmolar Contrast (ICD-10-PCS; 2018-09-03)
PROC: 021309W Bypass Coronary Artery, Four or More Arteries from Aorta with Autologous Venous Tissue, Open Approach (ICD-10-PCS; 2018-09-05)
PROC: 04HY32Z Insertion of Monitoring Device into Lower Artery, Percutaneous Approach (ICD-10-PCS; 2018-09-05)
PROC: 30233K1 Transfusion of Nonautologous Frozen Plasma into Peripheral Vein, Percutaneous Approach (ICD-10-PCS; 2018-09-05)
PROC: 02100Z9 Bypass Coronary Artery, One Artery from Left Internal Mammary, Open Approach (ICD-10-PCS; 2018-09-05)
PROC: 06BQ4ZZ Excision of Left Saphenous Vein, Percutaneous Endoscopic Approach (ICD-10-PCS; 2018-09-05)
PROC: 30233M1 Transfusion of Nonautologous Plasma Cryoprecipitate into Peripheral Vein, Percutaneous Approach (ICD-10-PCS; 2018-09-05)
PROC: 30233R1 Transfusion of Nonautologous Platelets into Peripheral Vein, Percutaneous Approach (ICD-10-PCS; 2018-09-05)
PROC: 30233N1 Transfusion of Nonautologous Red Blood Cells into Peripheral Vein, Percutaneous Approach (ICD-10-PCS; 2018-09-05)
PROC: 06BQ0ZZ Excision of Left Saphenous Vein, Open Approach (ICD-10-PCS; 2018-09-05)
PROC: 5A1221Z Performance of Cardiac Output, Continuous (ICD-10-PCS; 2018-09-05)
PROC: 0W993ZZ Drainage of Right Pleural Cavity, Percutaneous Approach (ICD-10-PCS; 2018-09-13)
DX: I25.10 Atherosclerotic heart disease of native coronary artery without angina pectoris (principal); K25.4 Chronic or unspecified gastric ulcer with hemorrhage; N17.9 Acute kidney failure, unspecified; I47.2 Ventricular tachycardia; N39.0 Urinary tract infection, site not specified; I50.20 Unspecified systolic (congestive) heart failure; D62 Acute posthemorrhagic anemia; D68.9 Coagulation defect, unspecified; J90 Pleural effusion, not elsewhere classified; I13.0 Hypertensive heart and chronic kidney disease with heart failure and stage 1 through stage 4 chronic kidney disease, or unspecified chronic kidney disease; I42.9 Cardiomyopathy, unspecified; D69.6 Thrombocytopenia, unspecified; E87.5 Hyperkalemia; E78.5 Hyperlipidemia, unspecified; I95.9 Hypotension, unspecified; E03.9 Hypothyroidism, unspecified; G89.29 Other chronic pain; M54.9 Dorsalgia, unspecified; E78.00 Pure hypercholesterolemia, unspecified; E86.0 Dehydration; N18.9 Chronic kidney disease, unspecified; K44.9 Diaphragmatic hernia without obstruction or gangrene; E83.42 Hypomagnesemia; E11.22 Type 2 diabetes mellitus with diabetic chronic kidney disease; M62.84 Sarcopenia; E83.39 Other disorders of phosphorus metabolism; B96.20 Unspecified Escherichia coli [E. coli] as the cause of diseases classified elsewhere; E87.70 Fluid overload, unspecified; Z88.0 Allergy status to penicillin; Z88.2 Allergy status to sulfonamides; Z82.49 Family history of ischemic heart disease and other diseases of the circulatory system; Z86.010 Personal history of colon polyps; Z79.82 Long term (current) use of aspirin; Z79.899 Other long term (current) drug therapy; Z79.1 Long term (current) use of non-steroidal anti-inflammatories (NSAID)
CPT/HCPCS: 10078; 10081; 10203; 47000; 47001; 47002; 47297; 47382; 48888; 50010; 50011; 50249; 50409; 50456; 50498; 50668; 51301; 51412; 52131; 52259; 52314; 53040; 53327; 53358; 54118; 55415; 56524; 56525; 56526; 56527; 56528; 56531; 56639; 56668; 56760; 56898; 57093; 62110; 62900; 62950; 64021; 65003; 65020; 65047; 65090; 65120; 65135; 83006

== ENCOUNTER 2018-09-20 12:24 | Inpatient (IN) | payer OTHER ==
[~2018-09-20] VITALS: Ht 157.5 cm; Wt 89.0 kg
[~2018-09-20 12:24] MED LIST: ALDACTONE100 MG PO; ASPIR 8181 MG PO; ATORVASTATIN CA40 MG PO; BENAZEPRIL HCL20 MG PO; CARVEDILOL3.125 MG PO; CEFUROXIME250 MG PO; CRESTOR20 MG PO; DIGOXIN250 MCG PO; EVISTA PO; EVISTA60 MG PO; GLIPIZIDE ER10 MG PO; HYDROCODONE-AP1 EAC6 PO; IBUPROFEN 800800 M1 PO; IRON325 PO; JANUVIA100 MG PO; LASIX 40 MG TAB40 M2 PO; LIPITOR10 MG PO; METFORMIN HCL500 MG PO; PACERONE 200 M200 M1 PO; PANTOPRAZOLE SO40 M1 PO; POTASSIUM20 PO; SYNTHROID75 MCG PO; VITAMIN E400 UNIT PO
[2018-09-20 12:25] VITALS: BP 109/50
[2018-09-20 12:55] LABS: HEMATOCRIT 33.9 % (37.0-47.0); HEMOGLOBIN 11.1 gm/dL (12.0-15.0); MCH 29.5 pg (26.0-34.0); MCHC 32.7 g/dL (28.0-37.0); MCV 90.4 fL (80.0-100.0); PLATELET COUNT 495 thou/uL (150-400); RBC 3.75 mil/uL (4.20-5.00); RDW 20.8 % (10.5-14.5); WBC 9.7 thou/uL (4.0-11.0)
[2018-09-20 13:11] LABS: ALBUMIN 2.1 g/dL (3.4-5.0); CALCIUM 7.8 mg/dL (8.5-10.1); CREATININE 0.7 mg/dL (0.6-1.0); TOTAL BILIRUBIN 2.3 mg/dL (<0.1-1.0); TOTAL PROTEIN 5.4 g/dL (6.4-8.2)
[2018-09-20 13:26] LABS: POTASSIUM 4.6 mmol/L (3.5-5.1)
[2018-09-20 13:38] LABS: ABSOLUTE NEUTROPHILS 6.4 thou/uL (1.4-8.2); ANISOCYTOSIS 1+; PLATELET ESTIMATE NORMAL
[2018-09-20 15:06] VITALS: BP 116/46
[2018-09-20 15:08] VITALS: BP 113/53
--- NOTE | 2018-09-20 16:30 | NUR ---
PT ADMITTED FROM [facility] FOR BLOOD IN STOOL THIS AM..PLAN FOR FLEX SIG TOMORROW.. 2 STOOLS TONIGHT WERE LIGHT BROWN WITH SMALL STREAKS OF BLOOD NOTED...ASSESSMENT COMPLETED...
[2018-09-20] MEDS ORDERED: SENNA8.6 MG PO (18:41)
[2018-09-20] MEDS ORDERED: MIRALAX17 GM PO (18:41)
[2018-09-20] MEDS ORDERED: FLOMAX0.4 MG PO (18:42)
[2018-09-20] MEDS ORDERED: BISACODYL SUPP10 MG RECTAL (18:43)
[2018-09-20] MEDS ORDERED: JUVEN PACKET1 EAC1 PO (18:45)
[2018-09-20] MEDS ORDERED: VITAMINC500 PO (18:46)
[2018-09-20 19:13] VITALS: BP 117/63
[2018-09-20 22:25] LABS: HEMATOCRIT 32.6 % (37.0-47.0); HEMOGLOBIN 10.7 gm/dL (12.0-15.0)
[2018-09-21 03:35] VITALS: BP 113/51
[2018-09-21 05:59] LABS: HEMATOCRIT 30.8 % (37.0-47.0); MCH 29.2 pg (26.0-34.0); MCHC 32.6 g/dL (28.0-37.0); MCV 89.5 fL (80.0-100.0); PLATELET COUNT 444 thou/uL (150-400); RBC 3.44 mil/uL (4.20-5.00); RDW 20.6 % (10.5-14.5); WBC 8.6 thou/uL (4.0-11.0)
[2018-09-21 07:40] LABS: CALCIUM 8.3 mg/dL (8.5-10.1); CREATININE 0.7 mg/dL (0.6-1.0); MAGNESIUM 1.3 mg/dL (1.8-2.4); POTASSIUM 3.8 mmol/L (3.5-5.1)
--- NOTE | 2018-09-21 07:50 | NUR ---
ASSUMED CARE OF PT AT 1900. A&Ox4, VS STABLE. GLUCOSE LEVEL WAS IN 50'S, TREATED W/ PO JUICE AND SNACKS, at 90 on last check. CLEAR FLUIDS UNTIL MIDNIGHT, NPO SINCE MIDNIGHT. SEVERAL LOOSE STOOLS, SOFT-LOOSE, DARK BROWN AND STREAKED W/ RED BLOOD. DENIED PAIN. AGREED TO FLEX SIG TODAY AND ENEMAS AROUND 1000. PROGRESSING TOWARDS POC GOALS.
[2018-09-21 08:08] VITALS: BP 128/64
[2018-09-21 08:37] LABS: ABSOLUTE NEUTROPHILS 5.7 thou/uL (1.4-8.2); ATYPICAL LYMPHS 1 %; NUCLEATED RBCS 1 /100WBC
[2018-09-21 08:38] LABS: ANISOCYTOSIS 1+; PLATELET ESTIMATE INCREASED
--- NOTE | 2018-09-21 10:25 | NUR ---
ASSESSMENT: CM REVIEWED CHART AND MET WITH PATIENT AT THE BEDSIDE. PATIENT WAS ADMITTED DUE TO RECTAL BLEEDING AND GI IS CONSULTED. PT WAS RECENTLY DISCHARGED EARLIER THIS MONTH AND WENT TO [facility] WHERE SHE CAME IN TO US FROM. PT REPORTS PRIOR TO GOING TO [facility] SHE WAS LIVING AT HOME WITH HER SON AND WAS INDEPENDENT. SON IS VERY SUPPORTIVE. PLANS ARE FOR PATIENT TO RETURN TO [facility] ONCE MEDICALLY STABLE BUT WILL NEED TO SEEK INSURANCE AUTH AGAIN SINCE SHE WAS REHOSPITALIZED. CM SPOKE WITH PATIENTS JOSÉ ANTONIO GOMEZ TO UPDATE. PT IS TO HAVE FLEX SIG. CM FAXED CLINICAL TO [facility] TO UPDATE. CM WILL CONTINUE TO FOLLOW TO ASSIST NEEDED.
--- NOTE | 2018-09-21 10:45 | NUR ---
Nutrition: assess d/t consult for diet instructions. Pt admitted for GIB. Was recently admitted for CABG in early Aug. RD previously spoke w/ pt about having adequate protein intake. Pt states she is trying to do this. Pt requested information on protein drinks, is willing to try Ensure Enlive. Currently NPO for planned flex sigmoidoscopy today. Will order supplement when diet advances. Pt had no further questions regarding diet. Physician has indicated PCM, will defer dx. With nutrition intervention in place, consider low risk.
[2018-09-21 14:30] LABS: HEMATOCRIT 32.5 % (37.0-47.0); HEMOGLOBIN 10.8 gm/dL (12.0-15.0)
[2018-09-21 16:46] VITALS: BP 129/94
--- NOTE | 2018-09-21 18:31 | NUR ---
ASSUMED PATIENT CARE AT 0700. A/O X4. PATIENT RIKY NOT HAD FLEX SIGMO DUE TO NOT ABLE TO LIE ON THE SIDE. DENIES PAIN .NO SOB. NO BLEEDING NOTED. SLOWLY TOWARDS POC GOALS.
[2018-09-21 20:04] VITALS: BP 128/66
[2018-09-21 22:03] LABS: HEMOGLOBIN 10.5 gm/dL (12.0-15.0)
[2018-09-22 04:08] VITALS: BP 129/66
[2018-09-22 04:44] LABS: HEMATOCRIT 34.7 % (37.0-47.0); HEMOGLOBIN 11.4 gm/dL (12.0-15.0); MCV 90.9 fL (80.0-100.0); RBC 3.81 mil/uL (4.20-5.00); RDW 21.1 % (10.5-14.5); WBC 8.4 thou/uL (4.0-11.0)
[2018-09-22 07:52] VITALS: BP 139/53
--- NOTE | 2018-09-22 07:54 | NUR ---
ASSUMED CARE OF PT AT 1900. A&Ox4. VS STABLE. BLOOD ON PAPER AFTER CLEANING HERSELF AFTER SMAll BM. NO BLOOD IN BM, JUST ON PAPER AFTER. ABLE TO SLEEP MOST OF SHIFT. NO ACUTE DISTRESS. PROGRESSIN TOWARDS POC GOALS.
[2018-09-22 11:02] LABS: ALBUMIN 2.6 g/dL (3.4-5.0); DIRECT BILIRUBIN 0.3 mg/dL (<0.1-0.3); TOTAL BILIRUBIN 1.6 mg/dL (<0.1-1.0); TOTAL PROTEIN 5.8 g/dL (6.4-8.2)
[2018-09-22 11:54] VITALS: BP 129/87
[2018-09-22 15:36] VITALS: BP 140/70
--- NOTE | 2018-09-22 16:23 | NUR ---
Assumed care of Pt at 0700. Pt alert and oriented x4 in no acute distress. no signs of bleeding. uneventful on telemetry. orders to transfer to senior suite. pt progressing toward poc goals.
--- NOTE | 2018-09-22 16:57 | NUR ---
TRANSFERRED AT 1630 FROM 354 TO SICU 222, PERSONAL BELONGINGS CAME WITH PATIENT, SALINE LOCK TO LEFT HAND INTACT, IV FLUIDS DC PRIOR TO TRANSFER, O2@2L/NC, PATIENT ORIENTED TO ROOM AND STAFF, WILL CONTINUE TO MONITOR
[2018-09-22 19:37] VITALS: BP 146/68
--- NOTE | 2018-09-23 03:59 | NUR ---
PATIENT ALERT AND ORIENTED X4. UP TO BSC WITH ONE ASSIST. MARTINEZ TO D/D WITH YELLOW URINE. 02NC 2L. SOME SOA NOTED WITH EXERTION. DRESSINGS TO CHEST AND LEG DRY AND INTACT. GIVEN TYLENOL PRN FOR LEG PAIN. RESTING QUIETLY. WILL MONITOR.
[2018-09-23 07:06] LABS: HEMOGLOBIN 11.4 gm/dL (12.0-15.0); MCV 90.8 fL (80.0-100.0); RDW 21.2 % (10.5-14.5); WBC 7.5 thou/uL (4.0-11.0)
[2018-09-23 07:08] LABS: HEMATOCRIT 36.3 % (37.0-47.0); MCH 28.5 pg (26.0-34.0); MCHC 31.4 g/dL (28.0-37.0)
[2018-09-23 08:05] VITALS: BP 121/62
--- NOTE | 2018-09-23 16:00 | NUR ---
ASSUMED PATIENT AND CARES AT 0715, REMAINS A&OX4, DENIES PAIN AND DISCOMFORT, LEFT HAND IV INTACT, DRSG TO CHEST AND LLE C/D/I, UP PER X1 ASSIST TO BSC, MARTINEZ INTACT WITH YELLOW URINE, PERSONAL BELONGINGS AND CALL LIGHT IN REACH, WILL CONTINUE TO MONITOR
[2018-09-23 20:49] VITALS: BP 157/68
--- NOTE | 2018-09-24 05:02 | NUR ---
PATIENT ALERT AND ORIENTED X4. UP WITH ONE ASSIST TO BSC. MARTINEZ TO D/D WITH YELLOW URINE. MEDICATED X1 FOR BILATERAL LOWER LEG PAIN WITH GOOD RESULTS. DRESSINGS DRY AND INTACT TO CHEST AND LEFT LEG. NO BLOOD NOTED WITH SMALL STOOL. 02NC 2L WITH SOME SOA WITH EXERTION. RESTING QUIETLY. WILL MONITOR.
[2018-09-24 08:10] VITALS: BP 152/83
--- NOTE | 2018-09-24 11:29 | NUR ---
earl sent therapy notes and updates to Delmar at [facility], only pt and ot was from 09/21. dp will call to make sure she received. earl spoke with Delmar and she said she probably will not get auth today for patient.
--- NOTE | 2018-09-24 15:35 | NUR ---
Following for d/c planning needs. Pt said she plans on returning to [facility] on d/c from hospital prior to returning home. Son is at bedside and said he is able to obtain any DME needed for home use. Will remain available to assist as needed.
--- NOTE | 2018-09-24 16:36 | NUR ---
ASSUMED CARE AT SHIFT CHANGE, PT PROGRESSING TOWARDS POC GOALS. A/O X 4, CALM AND PLESANT. UP TO BSC WITH MIN ASSIST. MARTINEZ OUT TODAY, VOIDING ADEQUATE AMOUNT OF URINE. WALKED WITH PT, SOB WIH ACTIVITY; CONTINUES ON 2L NC. SON VISITED AND UPDATED ON POC. VSS THROUGHOUT THE SHIFT. PLAN TO DC BACK TO [facility] TOM[facility]ROW, PENDING [facility] AUTH. WILL CONT TO MONITOR AND FOLLOW POC.
[2018-09-24 18:27] VITALS: BP 96/75
--- NOTE | 2018-09-25 03:55 | NUR ---
Pt A/OX4,VSS. Up with AX1/RW to BS without any problems voiced,did have a large BM before bedtime,no bleeding reported. C/o pain to right upper arm medicated with Tylenol per EMAR with some relief reported. Dsg to Left inner thigh changed,intact with garrison in place. Sternal incision dsg C/D/I and denies pain in areas. Resting with no distress noted,02 on at 2L/NC.Call light/personal items within reach,will continue to monitor pt.
[2018-09-25 06:19] LABS: HEMATOCRIT 37.2 % (37.0-47.0); MCH 29.3 pg (26.0-34.0); MCHC 32.2 g/dL (28.0-37.0); RBC 4.09 mil/uL (4.20-5.00); RDW 20.6 % (10.5-14.5); WBC 8.3 thou/uL (4.0-11.0)
[2018-09-25 06:32] LABS: ALBUMIN 2.5 g/dL (3.4-5.0); CALCIUM 9.1 mg/dL (8.5-10.1); CREATININE 0.7 mg/dL (0.6-1.0); POTASSIUM 3.9 mmol/L (3.5-5.1); TOTAL BILIRUBIN 1.2 mg/dL (<0.1-1.0); TOTAL PROTEIN 5.1 g/dL (6.4-8.2)
[2018-09-25 07:45] VITALS: BP 146/88
--- NOTE | 2018-09-25 11:04 | NUR ---
earl called [facility] to see if we have authorization yet, EARL talked to Adenike at facility and Marialuisa will call when they get auth.
--- NOTE | 2018-09-25 17:21 | NUR ---
PATIENT CARE WAS ASSUMED AT 0715.PATIENT IS ALERT AND ORIENTED X4.IV IS INTACT.NO COMPLAINS OF PAIN AT THIS TIME.PATIENT IS ABLE TO GET UP WITH ASSIST X1 TO THE BR OR BSC.CALL LIGHT,PHONE, AND PERSONAL BELONGINGS ARE WITHIN REACH.
--- NOTE | 2018-09-25 17:26 | NUR ---
PATIENT WAS DICHARGED TO GO REHAB AT [facility].IV WAS TAKEN OUT. PATIENT WAS PICKED UP VIA STRETCHER.DISCHARGE PAPERWORK WAS GIVEN TO TRANSPORTER.PATIENT WAS DISCHARGED IN STABLE CONDITION.REPORT WAS GIVEN TO NURSE THAT WILL BE TAKING CARE OF THE PATIENT.PATIENT HAS ALL OF HER BELONGINGS.
== END 2018-09-25 16:20 | DRG 377 ==
LOC: ER 12:24 → 3W 14:23 → EROBS 14:23 → SICU 14:23 → 3W 15:13 → SICU 09-22 16:23
PROVIDERS: Hospitalist; Nurse Practitioner; Nurse Practitioner Family; Specialist; ADMIT Internal Medicine
DX: K62.5 Hemorrhage of anus and rectum (principal); E43 Unspecified severe protein-calorie malnutrition; I42.9 Cardiomyopathy, unspecified; K64.9 Unspecified hemorrhoids; E03.9 Hypothyroidism, unspecified; E78.00 Pure hypercholesterolemia, unspecified; I25.10 Atherosclerotic heart disease of native coronary artery without angina pectoris; E66.9 Obesity, unspecified; N18.9 Chronic kidney disease, unspecified; E83.51 Hypocalcemia; E80.6 Other disorders of bilirubin metabolism; E11.22 Type 2 diabetes mellitus with diabetic chronic kidney disease; I12.9 Hypertensive chronic kidney disease with stage 1 through stage 4 chronic kidney disease, or unspecified chronic kidney disease; Z98.891 History of uterine scar from previous surgery; Z87.440 Personal history of urinary (tract) infections; Z68.35 Body mass index [BMI] 35.0-35.9, adult; Z95.1 Presence of aortocoronary bypass graft; Z86.010 Personal history of colon polyps; Z87.19 Personal history of other diseases of the digestive system; Z79.82 Long term (current) use of aspirin; Z79.84 Long term (current) use of oral hypoglycemic drugs; Z79.899 Other long term (current) drug therapy; Z88.0 Allergy status to penicillin; Z88.2 Allergy status to sulfonamides; Z88.8 Allergy status to other drugs, medicaments and biological substances; Z82.49 Family history of ischemic heart disease and other diseases of the circulatory system
CPT/HCPCS: 10879; 15001; 15002

== ENCOUNTER 2018-10-20 06:56 | Inpatient (IN) | payer OTHER ==
[~2018-10-20] VITALS: Ht 154.9 cm; Wt 91.5 kg
[2018-10-20] VITALS (41 sets, daily range): BP systolic 108–153; BP diastolic 42–88
--- NOTE | ~2018-10-20 | HC ---
[facility] [place] [address] [address] CONSULTATION Name: ALISHA PALMA Room #: 246-P [facility] IN M.R.#: [id number] Admission: 10/20/18 ������������������ Attend Phys: Rigo Gallegos MD Discharge: 10/25/18 ������������������ Date of : 42 Report #: [id number] THIS REPORT FOR: //name// CC: Dr. Christian Naranjo DATE OF SERVICE: 10/25/2018 REQUESTING PHYSICIAN: Dr. Gonzales. CHIEF COMPLAINT: Cardiac arrest. HISTORY OF PRESENT ILLNESS: The patient is a 78-year-old female who presented initially for cardiac arrest. She has a history of hypertension, hyperlipidemia, type 2 diabetes. She has coronary artery disease status post coronary artery bypass graft, 5-vessel about a month and a half ago, had been doing well; however, she was found slumped over a table by her son who called EMS. CPR was started. She was in pulseless V-tach, received 2 shocks and was given epinephrine, was able to return to spontaneous circulation, was transported to [facility]. 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 EEG confirmed that she has significant diffuse brain wave alteration consistent with hypoxic encephalopathy. Additionally, she has an MRI confirming areas of concern including thalamus, basal ganglia with hyperintensities seen at these places. Additionally, she has had sepsis. She had a white blood cell count of 21,000 today. Urine culture revealed gram-negative rods. Additionally, she has had seizures subsequent and has been on multiple medications to try to maintain seizure free at this time. The patient's son is the decision maker, who is present. His name is Rangel. I have discussed extensively with him and with family today with regards to their previous desires and wishes. PAST MEDICAL HISTORY: Again consistent with cardiac arrest, hypoxic encephalopathy. She also has coronary artery disease status post coronary artery bypass graft, seizure disorder now, additionally type 2 diabetes, hypertension, and hyperlipidemia. ALLERGIES: PENICILLIN, SULFA, TAPE. SOCIAL HISTORY: Again, son is present, who has a mental disability. I have confirmed with family friends and they have a plan going forward with regards to his care for the next week and are working on care going forward. CODE STATUS: They wished to make her a DNR. FAMILY HISTORY: Noncontributory. [address] [address] CONSULTATION Name: ALISHA PALMA Room #: 246-P DIS IN M.R.#: [id number] Admission: 10/20/18 ������������������ Attend Phys: Rigo Gallegos MD Discharge: 10/25/18 ������������������ Date of : 42 Report #: [id number] PAST SURGICAL HISTORY: As above. REVIEW OF SYSTEMS: Unable to obtain due to present medical condition. PHYSICAL EXAMINATION: VITAL SIGNS: Include temperature 36.5, pulse 65, respirations 16, blood pressure 91/41, 100% on ventilatory support. GENERAL: The patient is not alert, unable to be aroused. RESPIRATORY: Did not appear to be overbreathing on the ventilator. No apparent distress, accessory muscle use. ABDOMEN: Does not appear to be distended. EXTREMITIES: She does have good peripheral pulses to upper extremities bilaterally and additionally, she has good capillary refill. LABS: Again, white blood cell count 21,000 today. ASSESSMENT AND PLAN: 1. Hypoxic encephalopathy. Again, at this time, significant diffuse disease. I agree with Dr. Gray's recommendations with regards to palliative care. I have discussed this extensively with patient's son and friends of the family today. He does wish to pursue palliative extubation, changed her code status to DNR. Additionally, I had prepared medications and I have discussed extensively with nursing staff to process palliative extubation and what processes we will take if seizures do present and/or if discomfort is found, morphine, Ativan in place in addition to other medications as written, and other steps as written. I spent approximately 40 minutes in discussion of advanced care planning. 2. Cardiac arrest secondary to ventricular tachycardia. Again, this is the cause of above. At this point in time, we will be pursuing palliative extubation, had discussed the likelihood of some reflexive symptoms, unknown to what extent she is able to support herself at this point. Unknown to what extent her dying process may take. Certainly, I had discussed that other organ failure is high possibility despite the likeliness of respiratory failure being the overlying cause of her . Did discuss, we can proceed with regards to her palliative extubation today. I have discussed this with primary physician involved in her case, Dr. Gonzales, who is amenable to proceeding forward. 3. Seizure disorder. Again, I have Ativan in place. She was able to have administered her Depakote and Vimpat this morning. In addition, we will have Versed available in case we need to continue that to maintain her seizure free. Thank you very much for this consultation. Please feel free to contact me for any questions regarding this consult. ��������������������������������������������� ���������������������������������������� By: ��������������������������������������������� 0946 [id number] Ángel Recinos, DO /nt
[~2018-10-20 06:56] MED LIST changes: +BISACODYL SUPP10 MG RECTAL; +FLOMAX0.4 MG PO; +JUVEN PACKET1 EAC1 PO; +MIRALAX17 GM PO; +SENNA8.6 MG PO; +VITAMINC500 PO
[2018-10-20 07:44] LABS: HEMATOCRIT 39.9 % (37.0-47.0); HEMOGLOBIN 12.8 gm/dL (12.0-15.0); MCH 27.8 pg (26.0-34.0); MCHC 32.1 g/dL (28.0-37.0); MCV 86.7 fL (80.0-100.0); PLATELET COUNT 320 thou/uL (150-400); RDW 19.2 % (10.5-14.5); WBC 17.1 thou/uL (4.0-11.0)
[2018-10-20 07:57] LABS: CALCIUM 7.8 mg/dL (8.5-10.1); CREATININE 0.9 mg/dL (0.6-1.0); POTASSIUM 3.2 mmol/L (3.5-5.1)
[2018-10-20 07:59] LABS: APTT 27.3 Seconds (24.5-32.8); INR 1.2; PROTIME 12.2 Seconds (9.3-11.4)
[2018-10-20 08:01] LABS: HCO3 21.2 mmol/L (22.0-26.0); PCO2 35.1 mmHg (35.0-45.0); PO2 110.3 mmHg (80.0-100.0); pH 7.398 (7.360-7.450); sO2 98.1 % (92.0-98.0)
[2018-10-20 08:05] LABS: ALBUMIN 2.3 g/dL (3.4-5.0); TOTAL BILIRUBIN 0.9 mg/dL (<0.1-1.0); TOTAL PROTEIN 5.5 g/dL (6.4-8.2); TROPONIN-I 0.12 ng/mL (<0.06)
[2018-10-20 08:11] LABS: MAGNESIUM 0.9 mg/dL (1.8-2.4)
[2018-10-20 08:14] LABS: POC CA IONIZED 3.8 mg/dL (4.5-5.3); POC CREATININE 0.6 mg/dL (0.6-1.3); POC HEMOGLOBIN 13.3 g/dL (12.0-15.0); POC POTASSIUM 3.1 mmol/L (3.5-5.1)
[2018-10-20 08:25] LABS: ABSOLUTE NEUTROPHILS 8.7 thou/uL (1.4-8.2); METAMYELOCYTES 1 %; MYELOCYTES 2 %
[2018-10-20 08:27] LABS: ANISOCYTOSIS 2+; BURR CELLS 1+
[2018-10-20 08:59] LABS: AMP/METHAMP Negative (Negative); BARBITURATES Negative (Negative); BENZODIAZEPINES Negative (Negative); COCAINE Negative (Negative); METHADONE Negative (Negative); OPIATES Negative (Negative); PCP Negative (Negative)
--- NOTE | 2018-10-20 11:01 | EKG ---
[place] [address] [facility] [place] [address] ELECTROCARDIOGRAM REPORT Name: ALISHA PALMA Room #: 246-P ADM IN M.R.#: [id number] ������������������ Admission: 10/20/18 ������������������ Attend Phys: Rigo Gallegos MD Discharge: ������������������ Date of : 42 Report #: [id number] ����������������������������������������������������������������� [id number] THIS REPORT FOR: //name// [facility] ED Test Date: 2018-10-20 Test Time: 07:01:25 Pat Name: ALISHA PALMA Department: Room: 246 Gender: F Health Services Director: KAY : 1940 Requested By: Navneet Hayes Order Number: [id number] MD: Juan Antonio Padilla Measurements Intervals Bradford Rate: 87 P: -17 VT: 222 QRS: -7 QRSD: 70 T: QT: 440 QTc: 530 Interpretive Statements Sinus rhythm Borderline prolonged VT interval Inferior infarct, old Nonspecific ST segment abnormalities Compared to ECG 09/06/2018 06:48:37 Prolonged QT interval now present Sinus tachycardia no longer present ST (T wave) deviation no longer present Myocardial infarct finding still present Electronically Signed On 10-20-2018 11:01:20 CDT by Juan Antonio Padilla [email or web address] ��������������������������������������������� <ELECTRONICALLY SIGNED> ���������������������������������������� By: Juan Antonio Padilla MD ��������������������������������������������� 10/20/18 1101 0701 0701 Juan Antonio Padilla MD /EPI
[2018-10-20 11:47] LABS: BE(vivo) -1.9 mmol/L (-2 to +3); HCO3 22.1 mmol/L (22.0-26.0); PCO2 35.8 mmHg (35.0-45.0); PO2 254.5 mmHg (80.0-100.0); pH 7.409 (7.360-7.450); sO2 99.6 % (92.0-98.0)
--- NOTE | 2018-10-20 12:49 | NUR ---
CONSULTED TO PLACE A CENTRAL LINE POST CARDIAC ARREST. ORDER AND CONSENT NOTED.CONSENT OBTAINED BY THE GEOLOGIST FROM THE [facility]. THR RIGHT JUGULAR WAS WIDLEY PATENT. A #6F TRIPLE LUMEN JACC POWER INJECTABLE CENTRAL LINE WAS PLACED ON THE 2ND ATTEMPT PER HOSPITAL POLICY AFTER A BEDSIDE TIMEOUT WAS COMPLETE. LINE 25CM ADVANCED TO 7CM EXTERNAL. A STAT CHEST XRAY WAS ORDERED FOR TIP CONFIRMATION
[2018-10-20 14:13] LABS: HEMATOCRIT 40.2 % (37.0-47.0); MCH 27.7 pg (26.0-34.0); MCHC 32.3 g/dL (28.0-37.0); MCV 85.9 fL (80.0-100.0); RBC 4.68 mil/uL (4.20-5.00); RDW 18.9 % (10.5-14.5); WBC 15.4 thou/uL (4.0-11.0)
--- NOTE | 2018-10-20 14:16 | 2DMMODE ---
[facility] [place] [address] 2 D/M-MODE ECHOCARDIOGRAM Name: ALISHA PALMA Room #: 246-P ADM IN M.R.#: [id number] ������������� Admission: 10/20/18 ������������� Attend Phys: Rigo Gallegos, Discharge: ��� ������������� ��� Date of : 42 Date of Service: 10/20/18 1415 �� Report #: [id number] �������� ��������������������������������������������[id number] THIS REPORT FOR: //name// APPROVED REPORT Study performed: 10/20/2018 10:18:46 EXAM: Comprehensive 2D, Doppler, and color-flow Echocardiogram with contrast Patient Location: ICU Room #: [facility] Status: stat BSA: 1.85 HR: 61 bpm BP: 129/63 mmHg Other Information Study Quality: Fair Indications VT, Cardiac Arrest, CABG, Cardiomyopathy, HTN, diabetes, HLD Echo Enhancing Agent Indication: Endocardial border delineation Agent(s) / Amount(s) Used: Optison 6 cc 2D Dimensions RVDd: 31.38 mm IVSd: 12.65 (7-11mm) LVOT Diam: 21.08 (18-24mm) LVDd: 37.57 mm PWd: 12.99 (7-11mm) Ascending Ao: 29.54 (22-36mm) LVDs: 29.24 (25-40mm) Aortic Root: 34.19 mm IVC: 19.00 mm Volumes Left Atrial Volume (Systole) Single Plane 4CH: 39.85 mL Single Plane 2CH: 45.45 mL LA ESV Index: 25.37 mL/m2 Aortic Valve AoV Peak Skip.: 1.31 m/s AO Peak Gr.: 6.91 mmHg LVOT Max P.92 mmHg LVOT Max V: 0.99 m/s KINJAL Vmax: 2.62 cm2 Mitral Valve [facility] [address] [place] [address] 2 D/M-MODE ECHOCARDIOGRAM Name: ALISHA PALMA Room #: [facility] IN M.R.#: [id number] ������������� Admission: 10/20/18 ������������� Attend Phys: Rigo Gallegos, Discharge: ��� ������������� ��� Date of : 42 Date of Service: 10/20/18 1415 �� Report #: [id number] �������� ��������������������������������������������[id number] E/A Ratio: 0.6 MV Decel. Time: 205.86 ms MV E Max Skip.: 0.51 m/s MV A Skip.: 0.83 m/s MV Max Skip.: 5.97 m/s MV Mean Skip.: 4.45 m/s MV PHT: 59.70 ms IVRT: 133.79 ms Pulmonary Valve PV Peak Skip.: 0.77 m/s PV Peak Gr.: 2.38 mmHg Pulmonary Vein P Vein S: 0.39 m/s P Vein D: 0.23 m/s P Vein S/D Ratio: 1.70 Tricuspid Valve TR Peak Skip.: 2.90 m/s RAP Estimate: 10.00 mmHg TR Peak Gr.: 33.54 mmHg PA Pressure: 44.00 mmHg Left Ventricle The left ventricle is normal size. There is hypokinesis in the mid to distal inferoapical wall. Mild concentric left ventricular hypertrophy. Left ventricular systolic function is mild to moderately decreased. LVEF is 40%. Mild diastolic dysfunction is present (impaired relaxation pattern). Right Ventricle The right ventricle is normal size. The right ventricular systolic function is normal. Atria The left atrium size is normal. No shunting by contrast bubble injection. The right atrium size is normal. Aortic Valve The aortic valve is normal in structure. Mild aortic regurgitation. There is no aortic valvular stenosis. Mitral Valve The mitral valve is normal in structure. Mild to moderate mitral regurgitation. No evidence of mitral valve stenosis. Tricuspid Valve [facility] [address] [place] [address] 2 D/M-MODE ECHOCARDIOGRAM Name: ALISHA PALMA Room #: 246-P [facility] IN ..#: [id number] ������������� Admission: 10/20/18 ������������� Attend Phys: Rigo Gallegos, Discharge: ��� ������������� ��� Date of : 42 Date of Service: 10/20/18 1415 �� Report #: [id number] �������� ��������������������������������������������[id number] The tricuspid valve is normal in structure. Mild tricuspid regurgitation. Estimated PAP of 44 mmHg. Pulmonic Valve Pulmonic valve is not well visualized. Mild pulmonic regurgitation. Great Vessels The aortic root is normal in size. Ascending aorta is not well visualized. IVC is normal in size. Pt. on vent. Pericardium There is no pericardial effusion. <Conclusion> The left ventricle is normal size. Mild concentric left ventricular hypertrophy. Left ventricular systolic function is mild to moderately decreased. LVEF is 40%. There is hypokinesis in the mid to distal inferoapical wall. The right ventricle is normal size. The left atrium size is normal. Mild aortic regurgitation. Mild to moderate mitral regurgitation. Mild tricuspid regurgitation. Estimated PAP of 44 mmHg. ��������������������������������������������� <ELECTRONICALLY SIGNED> ���������������������������������������� By: Juan Antonio Padilla MD ��������������������������������������������� 10/20/18 1415 1415 1415 Juan Antonio Padilla MD /INF
[2018-10-20 14:20] LABS: CALCIUM 7.5 mg/dL (8.5-10.1); CREATININE 0.8 mg/dL (0.6-1.0); POTASSIUM 3.1 mmol/L (3.5-5.1)
[2018-10-20 14:29] LABS: MAGNESIUM 1.5 mg/dL (1.8-2.4); PHOSPHORUS 2.4 mg/dL (2.5-4.9); TROPONIN-I 0.3 ng/mL (<0.06)
[2018-10-20 17:34] LABS: URINE BILIRUBIN NEGATIVE (Negative); URINE BLOOD 3+ (Negative); URINE CLARITY CLEAR; URINE COLOR YELLOW; URINE GLUCOSE-RANDOM* TRACE (Negative); URINE KETONES TRACE (Negative); URINE PROTEIN (DIPSTICK) NEGATIVE (Negative); URINE SPECIFIC GRAVITY 1.015 (1.005-1.035); URINE UROBILINOGEN 0.2 E.U./dl (0.2-1.0)
[2018-10-20 17:38] LABS: URINE LEUKOCYTES-REFLEX 1+ (Negative); URINE NITRITE-REFLEX POSITIVE (Negative)
[2018-10-20] MEDS ORDERED: LASIX 40 MG TAB40 M2 PO (17:43)
[2018-10-20 17:47] LABS: HYALINE CASTS 0-3 Few /LPF (None Seen); SQUAMOUS 0-3 Few /LPF (0-3)
[2018-10-20 17:48] LABS: BACTERIA-REFLEX >30 Many /HPF (None Seen); CRYSTALS None Seen /LPF (None Seen); URINE WBC-REFLEX 6-15 Few /HPF (0-5)
--- NOTE | 2018-10-20 18:28 | NUR ---
Patient arrived to room 246 from ED at 0925. Intubated in ED. Accompanied by ED nurse and RT. Hypothermia protocol initiated at 0940, goal temp of 33 Celcius reached at 1200. Patient remains on versed drip for vent management, and to maintain shivering. Onetime vecuronium given during the day for increased shivering and muscle spasms. Continues on amiodarone drip. Insulin drip. Potassium and Magnesium replaced per protocol. Scant urine output for first few hours, onetime IVP lasix 20mg given with 700ml diuresed. Heart rate remained in mid to high 50s. BP stable. Son Rangel at bedside through the day. Educated on plan of care several times, all questions answered. He seems forgetful of treatment plan and why certain medications and hypothermia is being ordered. Will continue to offer emotional support as needed. Continue to monitor.
[2018-10-20 18:57] LABS: HEMATOCRIT 44.4 % (37.0-47.0); HEMOGLOBIN 14.4 gm/dL (12.0-15.0); MCHC 32.5 g/dL (28.0-37.0); MCV 86.1 fL (80.0-100.0); PLATELET COUNT 284 thou/uL (150-400); RBC 5.15 mil/uL (4.20-5.00); RDW 19.6 % (10.5-14.5); WBC 14.2 thou/uL (4.0-11.0)
[2018-10-20 19:08] LABS: CALCIUM 7.5 mg/dL (8.5-10.1); PHOSPHORUS 1.2 mg/dL (2.5-4.9)
[2018-10-20 19:11] LABS: CALCIUM 7.7 mg/dL (8.5-10.1); CREATININE 0.8 mg/dL (0.6-1.0); MAGNESIUM 2.1 mg/dL (1.8-2.4); TROPONIN-I 0.2 ng/mL (<0.06)
[2018-10-20 19:12] LABS: POTASSIUM 2.2 mmol/L (3.5-5.1)
[2018-10-20 19:37] LABS: ABSOLUTE NEUTROPHILS 12.4 thou/uL (1.4-8.2); METAMYELOCYTES 1 %
[2018-10-20 19:38] LABS: ANISOCYTOSIS 2+; BURR CELLS 2+
[2018-10-21] VITALS (42 sets, daily range): BP systolic 88–140; BP diastolic 49–77
[2018-10-21 00:49] LABS: HEMATOCRIT 43.3 % (37.0-47.0); HEMOGLOBIN 14.1 gm/dL (12.0-15.0); MCH 27.8 pg (26.0-34.0); MCHC 32.6 g/dL (28.0-37.0); MCV 85.3 fL (80.0-100.0); PLATELET COUNT 326 thou/uL (150-400); RBC 5.07 mil/uL (4.20-5.00); RDW 19.2 % (10.5-14.5); WBC 16.3 thou/uL (4.0-11.0)
[2018-10-21 01:14] LABS: CALCIUM 7.1 mg/dL (8.5-10.1); CREATININE 0.9 mg/dL (0.6-1.0); MAGNESIUM 1.7 mg/dL (1.8-2.4); PHOSPHORUS 1.5 mg/dL (2.5-4.9); TROPONIN-I 0.16 ng/mL (<0.06)
[2018-10-21 01:17] LABS: POTASSIUM 3.8 mmol/L (3.5-5.1)
[2018-10-21 01:31] LABS: ABSOLUTE NEUTROPHILS 13.7 thou/uL (1.4-8.2); ATYPICAL LYMPHS 1 %; MYELOCYTES 1 %
[2018-10-21 01:32] LABS: ANISOCYTOSIS 2+; BURR CELLS 2+; POLYCHROMASIA OCCASIONAL
[2018-10-21 02:17] LABS: MAGNESIUM 1.5 mg/dL (1.8-2.4); POTASSIUM 3.6 mmol/L (3.5-5.1)
[2018-10-21 05:17] LABS: HEMATOCRIT 40.7 % (37.0-47.0); HEMOGLOBIN 13.3 gm/dL (12.0-15.0); MCHC 32.6 g/dL (28.0-37.0); PLATELET COUNT 374 thou/uL (150-400); RBC 4.73 mil/uL (4.20-5.00); RDW 19.5 % (10.5-14.5); WBC 17.2 thou/uL (4.0-11.0)
[2018-10-21 05:26] LABS: BE(vivo) -6.8 mmol/L (-2 to +3); HCO3 18.4 mmol/L (22.0-26.0); PCO2 36.1 mmHg (35.0-45.0); PO2 94.5 mmHg (80.0-100.0); sO2 96.8 % (92.0-98.0)
[2018-10-21 05:27] LABS: pH 7.325 (7.360-7.450)
[2018-10-21 05:43] LABS: CREATININE 0.6 mg/dL (0.6-1.0); MAGNESIUM 2.3 mg/dL (1.8-2.4); PHOSPHORUS 1.6 mg/dL (2.5-4.9); TROPONIN-I 0.13 ng/mL (<0.06)
--- NOTE | 2018-10-21 06:31 | NUR ---
ASSUMED PATIENT CARE AT 1900. PATIENT LYING IN BED ON THE VENTILATOR WITH INDUCED HYPOTHERMIA. PATIENT HAS A NEGATIVE GAG AND COUGH REFLEX BUT IS POSITIVE FOR A CORNEAL REFLEX. PATIENT PLACED ON LEVOPHED TO MAINTAIN MAP >80 PER PROTOCOL. ALSO, PATIENT'S BLOOD CX ARE POSITIVE FOR GRAM POSITIVE COCCI. MAGNESIUM AND POTASSIUM REPLACED AND INSULIN GTT DISCONTINUED.
[2018-10-21 06:37] LABS: ABSOLUTE NEUTROPHILS 14.4 thou/uL (1.4-8.2)
[2018-10-21 06:38] LABS: ANISOCYTOSIS 2+
[2018-10-21 12:54] LABS: HEMATOCRIT 41.4 % (37.0-47.0); HEMOGLOBIN 13.5 gm/dL (12.0-15.0); MCHC 32.7 g/dL (28.0-37.0); MCV 85.6 fL (80.0-100.0); PLATELET COUNT 362 thou/uL (150-400); RBC 4.84 mil/uL (4.20-5.00); RDW 19.3 % (10.5-14.5); WBC 19.6 thou/uL (4.0-11.0)
[2018-10-21 13:19] LABS: CALCIUM 7.1 mg/dL (8.5-10.1); CREATININE 0.6 mg/dL (0.6-1.0); MAGNESIUM 2.1 mg/dL (1.8-2.4); PHOSPHORUS 2.6 mg/dL (2.5-4.9); TROPONIN-I 0.09 ng/mL (<0.06)
[2018-10-21 13:20] LABS: POTASSIUM 4.9 mmol/L (3.5-5.1)
[2018-10-21 13:21] LABS: ABSOLUTE NEUTROPHILS 17.8 thou/uL (1.4-8.2); ANISOCYTOSIS 1+; ATYPICAL LYMPHS 1 %; BURR CELLS FEW; METAMYELOCYTES 1 %; OVALOCYTES OCCASIONAL; POIKILOCYTOSIS SLIGHT
--- NOTE | 2018-10-21 17:07 | NUR ---
ASSUMED CARE OF PT AT 0700 THIS SHIFT. PT HAS BEEN INTUBATED AND SEDATED WITH VERSED GTT FOR VENT MANAGEMENT. PT HAS BEEN ON HYPOTHERMIA PROTOCOL, REWARMING WAS STARTED THIS MORNING AT 0955, ARCTIC SUN MACHINE DID NOT AUTOMATICALLY START REWARMING, HOWEVER, WAS MANUALLY RESET. PT WAS TOLERATING REWARMING WELL, UNTILL 1616 AND PT STARTED TO HAVE SEIZURE LIKE ACTIVITY. ATIVAN WAS GIVEN, VERSED GTT WAS TITRATED UP, NEUROLOGY CONSULTED AND KEPPRA IV GIVEN, EEG IN THE MORNING. ID WAS CONSULTED THIS SHIFT, SPOKE TO DR DANIEL, ORDERS ENTERED. ASSESSMENTS ARE DOCUMENTED. PT HAS HAD VISITORS THIS SHIFT, EDUCATION WAS PROVIDED. PLAN OF CARE IS TO MONITOR PT CLOSELY AT THIS TIME.
[2018-10-21 18:41] LABS: ALBUMIN 1.8 g/dL (3.4-5.0); DIRECT BILIRUBIN 0.2 mg/dL (<0.1-0.3); POTASSIUM 4.4 mmol/L (3.5-5.1); TOTAL BILIRUBIN 0.7 mg/dL (<0.1-1.0); TOTAL PROTEIN 5.2 g/dL (6.4-8.2)
[2018-10-22] VITALS (94 sets, daily range): BP systolic 66–193; BP diastolic 35–137
[2018-10-22 05:26] LABS: BE(vivo) -6.8 mmol/L (-2 to +3); HCO3 16.7 mmol/L (22.0-26.0); PCO2 28.4 mmHg (35.0-45.0); PO2 106.9 mmHg (80.0-100.0); pH 7.388 (7.360-7.450); sO2 97.9 % (92.0-98.0)
[2018-10-22 05:53] LABS: CALCIUM 6.4 mg/dL (8.5-10.1); CREATININE 0.8 mg/dL (0.6-1.0); MAGNESIUM 1.9 mg/dL (1.8-2.4); POTASSIUM 4.5 mmol/L (3.5-5.1)
[2018-10-22 05:54] LABS: HEMATOCRIT 38.5 % (37.0-47.0); HEMOGLOBIN 12.3 gm/dL (12.0-15.0); MCH 27.4 pg (26.0-34.0); MCHC 31.8 g/dL (28.0-37.0); MCV 85.9 fL (80.0-100.0); RBC 4.48 mil/uL (4.20-5.00); RDW 20.2 % (10.5-14.5)
--- NOTE | 2018-10-22 06:14 | NUR ---
ASSUMED CARE @ 1900 10/21/18, PT ASSESSMENT AND VSS COMPLETE PER ICU PROTOCOL, PER HYPOTHERMIA PRT, RN STARTED TO WEAN OF VERSED TO SEE WHAT PT WOULD DO NEUROLOGICALLY, PT STARTS TO SEIZE AGAIN, NEURO CALLED PT PUT BACK ON VERSED GTT @ MAX FOR THESE SEIZURES, WHEN PT SEIZES SHE MOVES ONLY THE LEFT ARM, LEFT LEG AND RIGHT LEG BUT NOT THE RIGHT HAND. AFTER 1 MG OF ATIVAN PER ORDER AND MAX DOSE OF VERSED GTT IN PLACE. PT STILL CONTINUES TO SEIZE AND SO DR GOLD WAS CALLED AGAIN AND DEPACONE (VALPROATE) WAS ORDERED. PT STOPPED SEIZING, BUT WHEN SUCTIONED OR STIMULATED SHE WOULD START TO SEIZE AGAIN, RN TRIED TO REDUCE STIMULI TO AVOID THIS FROM OCCURING. PT ON LEVOPHED FOR BP SUPPORT, CONTINOUS RECTAL TEMP IN PLACE, PT AFEBRILE, PULSES 1/1 BUT HANDS AND FEET COLD. LACTIC ACID 4.1 PER YESTERDAY DURING THE DAY WAS ELEVATED, ABDIAS MANAGER OF GLOBAL CALLED, NEW ORDERS RECIEVED. LACTATE FROM ABG 2.7 THIS AM. PT ON THE VENT, SETTINGS IN PROCESS INTERVENTIONS, SATS IN THE HIGH 90'S. NG IN PLACE TO LIS, Q6H ACCUCHECKS, SLIDING SCALE IN PLACE. MARTINEZ IN PLACE, LOW OUTPUT NOTED. PLAN OF CARE- EEG THIS AM, CONTINUE TO MONITOR LABS, VS AND OVERALL HEALTH.
--- NOTE | 2018-10-22 09:06 | NUR ---
Once pt stabilizes and if nutrition support within plan of care, recommend Vital AF 1.2 to reach final goal of 55ml/hr
[2018-10-22] MEDS ORDERED: PACERONE 200 M200 M1 PO (09:11)
[2018-10-22] MEDS ORDERED: EVISTA60 MG PO (09:11)
[2018-10-22] MEDS ORDERED: IBUPROFEN 800800 M1 PO (09:11)
--- NOTE | 2018-10-22 13:15 | HC ---
[facility] [place] [address] CONSULTATION Name: ALISHA PALMA Room #: 246-P ADM IN M.R.#: [id number] Admission: 10/20/18 ������������������ Attend Phys: Rigo Gallegos MD Discharge: ������������������ Date of : 42 Report #: [id number] THIS REPORT FOR: //name// CC: Rigo Naranjo DATE OF SERVICE: 10/22/2018 TYPE OF REPORT: Infectious disease consultation. REASON FOR CONSULTATION: Antibiotic management. Positive blood culture. HISTORY OF PRESENT ILLNESS: A 78-year-old white woman suffered cardiorespiratory arrest, resuscitated by EMS after 5-10 minutes response time. The patient now in the Intensive Care Unit. Cooling protocol had been discontinued. The patient is on mechanical ventilator and having left-sided seizures. The patient's son at bedside. I shared with him my opinion. He is telling me "mother soon okay" and I told him mother is critically ill and we were doing as much as possible. PAST MEDICAL HISTORY: 1. Recent aortocoronary bypass grafting in August 2018. 2. History of coronary artery disease. 3. Dyslipidemia. 4. History of upper GI bleeding. DRUG ALLERGIES: PENICILLIN, SULFA and TAPE. MEDICATIONS: The patient is on treatment with meropenem 1 gram IV every 8 hours and vancomycin 1 gram IV every 12 hours. The patient is receiving chlorhexidine gluconate oral care, levetiracetam 1500 mg IV twice daily, lacosamide 1200 mg IV b.i.d., atorvastatin and aspirin. She is on Levophed, famotidine, p.r.n. glucagon and sedation with midazolam. She is receiving amiodarone drip, p.r.n. sublingual nitroglycerin and p.r.n. ondansetron IV. SOCIAL HISTORY: See H and P, old records. FAMILY HISTORY: See H and P, old records. REVIEW OF SYSTEMS: Unable to obtain. PHYSICAL EXAMINATION: GENERAL: Elderly woman, continuously having left-sided seizures. VITAL SIGNS: Presenting following vital signs: BP as low as 66/43, this by Levophed; temperature 98.4; pulse 67 and respirations 23. HEENT: Pupils small, reactive. Mouth unable to examine, orotracheal [facility] [address] [place] [address] CONSULTATION Name: ALISHA PALMA Room #: [address] [place] [address] IN M.R.#: [id number] Admission: 10/20/18 ������������������ Attend Phys: Rigo Gallegos MD Discharge: ������������������ Date of : 41 Report #: [id number] intubation. NECK: Sternal wound healed. LUNGS: Basilar crackles. HEART: S1 and S2. No gallop. ABDOMEN: Soft. No masses or megaly. Large panniculus. Ecchymosis, right lower quadrant. EXTREMITIES: No pretibial edema. NEUROLOGICAL: Unresponsive and seizures in left side of the body. LABORATORY DATA: Sodium 139, potassium 4.5, chloride 106, BUN 10, creatinine 0.8, glucose 211 and calcium 6.4. Possibly reflecting hypoalbuminemia and actually the albumin yesterday was 1.8 g/dL. Lactic acid elevated up to 4.1 yesterday. CK-MB mass 15.6, elevated. Mild elevation of troponin noted as well. Status post CPR. NT-pro-BNP is 7642. Drug screen and urine negative. A white blood cell count on admission 17,100 and today 23,000; hemoglobin 12.3 g/dL and platelets 363,000. White blood cell count revealed 80% segmented neutrophils and 11% bands yesterday. TSH normal. Vancomycin trough pending. Urinalysis revealed trace glucose, ketones, 3+ blood and positive nitrite. The microscopic exam of the urine revealed pyuria, hematuria and bacteriuria. The urine culture is pending. Note is made the patient had previous urine culture with E. coli sensitive to most tested antibiotics. ABGs today revealed pH 7.38, pCO2 of 28, pO2 of 106, bicarbonate low at 16.7 millimoles per liter, lactate elevated 2.70 millimoles per liter, oxygen saturation 96% on FiO2 of 40%, tidal volume 500 and 5 of PEEP. MICROBIOLOGY DATA: The urine culture is pending. Sputum culture pending. Single positive blood culture with Gram-positive cocci. RADIOLOGY EVALUATION: A CT scan of the brain, no acute hemorrhage. CT scan of the cervical spine, no acute cervical spine fracture of subluxation. The chest x-ray on admission revealed increased atelectasis, upper lungs and endotracheal intubation, cardiomegaly and coronary artery bypass grafting findings. Repeat chest x-ray today revealed persistent cardiomegaly, no congestive heart failure. The prominence of the upper lungs has decreased some today. ASSESSMENT: 1. Status post cardiorespiratory arrest with severe anoxic encephalopathy and persistent left-sided seizures. 2. Status post coronary artery bypass grafting in August 2018. 3. Single positive blood culture with Gram-positive cocci. 4. Persistent seizures secondary to above. SUGGESTIONS: Recommend discontinue meropenem. Continue vancomycin and substitute meropenem for ceftriaxone 1 gram IV daily. Prognosis is poor. Share this with the patient's son. [facility] [address] [place] [address] CONSULTATION Name: ALISHA PALMA Room #: 246-P ADM IN M.R.#: [id number] Admission: 10/20/18 ������������������ Attend Phys: Rigo Gallegos MD Discharge: ������������������ Date of : 41 Report #: [id number] Gallegos, thank you for requesting my suggestions. ��������������������������������������������� <ELECTRONICALLY SIGNED> ���������������������������������������� By: Jabier Thompson MD ��������������������������������������������� 10/22/18 1315 1030 1147 Jabier Thompson MD /nt
--- NOTE | 2018-10-22 16:40 | HC ---
[facility] [place] [address] CONSULTATION Name: ALISHA PALMA Room #: 246-P ADM IN M.R.#: [id number] Admission: 10/20/18 ������������������ Attend Phys: Rigo Gallegos MD Discharge: ������������������ Date of : 41 Report #: [id number] THIS REPORT FOR: //name// CC: Rigo Naranjo NEUROLOGY CONSULTATION HISTORY OF PRESENT ILLNESS: The patient is a 78-year-old female who on the day of admission complained of dizziness in the morning. Her son helped her get out of bed. He went to the kitchen to get orange juice for her. She staggered into the living room. He went to the bathroom and as he walked out he heard her say "whoops" and found her on the floor. At that point, the patient was pulseless and not breathing. The son was unable to initiate CPR. The arrest occurred at approximately 6:14. The fire department arrived at 6:23 and initiated the CPR. The initial rhythm was a pulseless V-tach. The patient received 2 doses of epinephrine and 2 shocks. She converted to sinus rhythm. She attempted some respirations and had a blood pressure in the low 100s. The patient had undergone a coronary artery bypass graft x [address] Akins on 09/05/2018. The patient had been seen the day prior to admission when stitches were removed. The patient had been in a rehab facility after surgery, but had been home approximately 1-2 weeks. The patient also had an open wound over her chest and abdomen from a dehiscence postoperatively. The patient is now on Versed 6 mg drip and has been seizing. She has received levetiracetam 1 gram in addition to lorazepam 1 gram. The seizures are not as intense, but she does continue to have jerking movements of the upper torso and feet, which are synchronous. PAST MEDICAL HISTORY: Congestive heart failure, cardiomyopathy, hypertension, foe-xuwpxxa-oczddcxxp diabetes mellitus, chronic kidney disease. PAST SURGICAL HISTORY: Status post coronary artery bypass graft x 5. MEDICATIONS: Vancomycin, albuterol nebulizer, aspirin 325 mg daily, atorvastatin 40 mg daily, famotidine 20 mg b.i.d., meropenem 1 g daily, Versed 6 mg, vancomycin 1 gram q. 12 hours. ALLERGIES: PENICILLIN, SULFA, TAPE. PHYSICAL EXAMINATION: VITAL SIGNS: Temperature 36.7 degrees, pulse rate 59, respiratory rate 13, blood pressure 122/63, bedside pulse oximetry 100% on the ventilator. NEUROLOGIC: The patient has intermittent twitching of the head and extremities, particularly the feet, which are in time to the twitching of the head. The patient is on 6 mg Versed drip, so this limits [place] [address] CONSULTATION Name: ALISHA PALMA Room #: 246-P ADM IN M.R.#: [id number] Admission: 10/20/18 ������������������ Attend Phys: Rigo Gallegos MD Discharge: ������������������ Date of : 41 Report #: [id number] unresponsive and has no spontaneous movements of the extremities. The patient has brisk pupillary responses and over-breathes the vent. LABORATORY WORK: White blood cell count 19.6; hemoglobin 13.5; hematocrit 41.4; MCV 85.6; platelet count 362,000. Urinalysis: Trace ketones, 3+ blood, nitrite positive, leukocyte esterase 1+. Chemistry: Sodium 139, potassium 4.9, chloride 106, carbon dioxide 22, BUN 8, creatinine 0.6, GFR 97, glucose 304, calcium 7.1, phosphorus 2.6, magnesium 2.1. Liver functions: Total bilirubin 0.9, direct bilirubin 0.3, AST 42, ALT 19, alkaline phosphatase 98. ProBNP 7642. IMAGING: CT scan of the head done on admission demonstrates no evidence of acute intracranial hemorrhage or other acute intracranial abnormality. IMPRESSION: This patient is in status epilepticus. She has already received 1 gram of levetiracetam and is to receive an additional 500 mg, then begin levetiracetam 1500 mg every 12 hours. I have also asked the nurse to give the patient an additional 1 mg of lorazepam. If the seizures do not stop after 15 minutes after the infusion of levetiracetam has been completed, then lacosamide 200 mg intravenous every 12 hours will be given next. If that does not stop the seizures, then either Depakote or Dilantin will be considered next. However, I am concerned about administering medication metabolized through the liver as I am concerned the patient's liver functions, which are only very slightly elevated at this moment, may continue to rise as the patient may have and has most likely had a significant hypoxic injury. Electroencephalogram has been ordered as well. Dr. Slaughter will be following the patient or Dr. Gray as of Monday. ��������������������������������������������� <ELECTRONICALLY SIGNED> ���������������������������������������� By: Anat Tilley DO ��������������������������������������������� 10/22/18 1640 1808 [id number] Anat Tilley DO /nt
--- NOTE | 2018-10-22 19:17 | NUR ---
ASSUMED CARE OF PT. AT 0700. PT. GCS OF 6. SLUGGISH PUPILLARY RESPONSE. FOCAL SEIZURE ACTIVITY ON LEFT SIDE THROUGHOUT DAY. PHYSICIAN ORDERED DEPAKOTE 1000 MG BOLUS. INCREASED SEIZURE ACTIVITY WITH STIMULATION. ASSESSMENTS AND VITALS CHARTED. MEDICATION TITRATIONS CHARTED. NEW WOUND DISCOVERED BY WOUND CARE, SEE DOCUMENTATION FOR DETAILS. SON PATRICIA EDUCATED ON PT. CONDITION, NEEDS REINFORCEMENT. FAMILY FRIEND AVIS ALSO EDUCATED. WILL CONTINUE TO MONITOR.
[2018-10-23] VITALS (60 sets, daily range): BP systolic 92–146; BP diastolic 42–68
[2018-10-23 05:28] LABS: HEMATOCRIT 36.2 % (37.0-47.0); HEMOGLOBIN 11.7 gm/dL (12.0-15.0); MCH 27.8 pg (26.0-34.0); MCHC 32.4 g/dL (28.0-37.0); MCV 85.7 fL (80.0-100.0); RBC 4.23 mil/uL (4.20-5.00); WBC 21.2 thou/uL (4.0-11.0)
[2018-10-23 05:38] LABS: CALCIUM 6.6 mg/dL (8.5-10.1); CREATININE 0.8 mg/dL (0.6-1.0); POTASSIUM 3.8 mmol/L (3.5-5.1)
--- NOTE | 2018-10-23 05:44 | NUR ---
ASSUMED CARE @ 1900 10/22/18, PT ASSESSMENT AND VSS COMPLETE PER ICU PROTOCOL. PT NOT FOLLOWING COMMANDS, GCS 6, PT ABLE TO WITHDRAW FROM PAIN IN ONLY THE LOWER EXTREMITIES, INTERMITTENT SEIZURE ACTIVITY APPARENT, MOVEMENT IN ONLY LOWER EXTREMITIES AND LEFT ARM, MORE MOVEMENT IN THE LEFT LOWER EXTREMITY THAN THE RIGHT LOWER EXTREMITY. SEIZURE PRECAUTIONS IN PLACE. PT IN SR, AFEBRILE THROUGHT OUT THE NIGHT, ON LEVOPHED FOR BP SUPPORT, EDEMA PRESENT PLEASE SEE PROCESS INTERVENTIONS FOR SPECIFICS. PT ON THE VENT SAME SETTING, NO CHANGES, SATS IN THE HIGH 90'S TO 100. NG IN PLACE TO LIS, NO OUTPUT NOTED, Q6H ACCUCHECKS, NO BM DURING SHIFT. MARTINEZ IN PLACE, FALL PRECAUTIONS IN PLACE. PLAN OF CARE- CONT TO MONITOR.
--- NOTE | 2018-10-23 09:26 | NUR ---
WOUND CONSULT: PT. WAS SEEN ON 10/22/[address] JACOB AND MYSELF. PT. HAS A STAGE 3 PRESSURE ULCER TO HER LEFT BUTTOCK ALONG WITH A OPEN ULCERATION TO HER STERNUM POST A OPEN HEART. DR. JACOB REMOVED A SUTURE FROM THIS SITE AT THIS VIST. WHERE THE PT. HAD AICHA DRAINS IN HER ABDOMEN THE TRACKS ARE STILL OPEN. RECOMMENDATIONS: WOUND CARE TO BILATERAL UPPER ABDOMEN: GENTLY CLEANSE AREA WITH WOUND CLEANSER OR NORMAL SALINE, PACK WITH PURACOL AG TO WOUND BED, COVER WITH OPTIFOAM, COMPLETE CARES DAILY AND PRN. WOUND CARE TO STERNUM: GENTLY CLEANSE AREA WITH WOUND CLEANSER OR NORMAL SALINE, PACK WITH AQUACEL AG TO WOUND BED, COVER WITH BORDERED FOAM, COMPLETE CARES DAILY AND PRN. WOUND CARE TO LEFT BUTTOCK: GENTLY CLEANSE AREA WITH WOUND CLEANSER OR NORMAL SALINE, APPLY Z-GUARD, LEAVE OPEN TO AIR, COMPLETE CARES DAILY AND PRN. PT. AND STAFF NURSE WERE INSTRUCTED ON PLAN OF CARE.
--- NOTE | 2018-10-23 09:52 | EEG ---
[facility] [place] [address] ELECTROENCEPHALOGRAM Name: ALISHA PALMA Room #: 246-P ADM IN M.R.#: [id number] ������������������ Admission: 10/20/18 ������������������ Attend Phys: Rigo Gallegos MD Discharge: ������������������ Date of : 41 Report #: [id number] ����������������������������������������������������������������� [id number] THIS REPORT FOR: //name// CC: Rigo Naranjo This patient is being evaluated after cardiac arrest. EEG was done by placing the electrode by standard 10-20 system of electrode placement. Both referential and sequential montages were used for recording. This is a severely abnormal EEG, which demonstrate epileptiform activity throughout the record and somewhat of a burst suppression pattern. With almost continuous epileptiform activity in the above pattern, it is difficult to comment any further. Photic stimulation was unremarkable. IMPRESSION: This is a severely abnormal EEG, which would be consistent with the clinical history of hypoxic encephalopathy. The patient's EEG demonstrates diffuse and very persistent epileptiform activity throughout the record. Clinical correlation is recommended. ���������������������������������������� <ELECTRONICALLY SIGNED> ���������������������������������������� By: Dain Slaughter MD ��������������������������������������������� 10/23/18 0952 0826 0845 Dain Slaughter MD /nt
--- NOTE | 2018-10-23 14:40 | NUR ---
WOUND FOLLOW UP: PT. WAS SEEN TODAY BY WOUND CARE TODAY. PT. WAS UNABLE TO BE TURNED TO HAVE BUTTOCK ASSESSED. PT. OTHER DRESSINGS ARE C/D/I AT THIS TIME. RECOMMENDATIONS: CONTINUE WITH CURRENT PLAN OF CARE. PT. AND STAFF NURSE WERE INSTRUCTED ON PLAN OF CARE.
--- NOTE | 2018-10-23 15:01 | NUR ---
CM ASSESSMENT: CASE OPENED FOR DC PLANNING. CLINICAL INFO REVIEWED. PT ADMITTED FROM HOME AFTER CARDIAC ARREST WITH CPR STARTED BY EMS. PT KNOWN TO CM FROM PREVIOUS ADMIT IN 08/2018-HAD OPEN HEART SURGERY AND DISCHARGED TO SKILLED REHAB AT [facility]. PT DISCHARGED TO HOME WITH HER SON PATRICIA 10/10/18 WITH RN/PT/OT FROM [facility]. HYPOTHERMIA PROTOCOL COMPLETED, PT REMAINS ON VENT, HAVING SEIZURES REQUIRING VERSED GTT. UNCLEAR DC PLAN AT PRESENT R/T PT'S CONDITION.
--- NOTE | 2018-10-23 19:48 | NUR ---
PATIENT NOT ALERT, INTERMITTENT SEIZURE ACTIVITY. PRECAUTIONS IN PLACE. SINUS RHYTHM ON CONCRETE MIXER LOADER TRUCK MOUNTED. ON VENTILATOR 30% FIO2. NG TUBE TO LOW INTERMITTENT SUCTION. MARTINEZ PATENT AND DRAINING. PATIENT ON BLOOD PRESSURE SUPPORT, MAP REMAINS ABOVE 60. BLOOD SUGAR MONITORED. NO SIGNS OF ACUTE DISTRESS NOTED AT THIS TIME. SON UPDATED ON THE PLAN OF CARE. WILL CONTINUE TO MONITOR.
[2018-10-24] VITALS (52 sets, daily range): BP systolic 98–140; BP diastolic 43–74
--- NOTE | 2018-10-24 13:54 | NUR ---
WOUND FOLLOW UP: PT. WAS SEEN TODAY BY DR. ESQUIVEL AND MYSELF. WE WERE ABLE TO VISULIZE THE WOUND TO PATIENT LEFT BUTTOCK TODAY. THIS WOUND IS STABLE AT THIS TIME. PT. STERNAL WOUND HAS SLOUGH IN THE BASE AND CHANGES IN WOUND CARE WILL BE MADE. RECOMMENDATIONS: CONTINUE WITH CURRENT PLAN OF CARE. PT. AND STAFF NURSE WERE INSTRUCTED ON PLAN OF CARE.
--- NOTE | 2018-10-24 15:36 | NUR ---
MRI TODAY SHOWS IRREVERSIBLE BRAIN DAMAGE PER DR. REINA. DR. REINA SPOKE WITH PT'S SON PATRICIA ABOUT MRI AND RECOMMENDED COMFORT CARE. PATRICIA IS UNABLE TO CONSENT TO THAT AT PRESENT. CHAPLAIN FORD ON UNIT TO PROVIDE SUPPORT TO SON. CALLED FAMILY FRIEND AVIS POND AND SHE WAS PLANNING TO BE HERE AFTER WORK AND WILL REACH OUT BY PHONE NOW TO SUPPORT PATRICIA. MAY BENEFIT FROM CONSULTING DR. MIR TO HELP SON PROCESS INFO AND MAKE CARE DECISIONS.
--- NOTE | 2018-10-24 19:24 | NUR ---
PATIENT NOT RESPONSIVE, INTERMITTENT SEIZURE LIKE ACTIVITY. SEIZURE PRECAUTIONS IN PLACE. NG TUBE TO LOW INTERMITTENT SUCTION. MARTINEZ PATENT AND DRAINING. WOUND CARE COMPLETED. SEDATION AND IV BLOOD PRESSURE SUPPORT ON HOLD. MAP REMAINED ABOVE 60, PATIENT RESTING COMFORTABLY. SPOKE WITH DR. OSORIO AND DR. REINA ABOUT THE PLAN OF CARE. ALSO SPOKE WITH PATIENT'S SON AND FAMILY FRIEND AVIS AT THE BEDSIDE. DR. RIVERA NOTIFIED AND MADE AWARE ABOUT UPDATED PLAN OF CARE. MTN NOTIFIED OF POSSIBLE EXTOBATION AND COMFORT CARE PLANNED FOR TOMORROW. NO SIGNS OF ACUTE DISTRESS NOTED AT THIS TIME. WILL CONTINUE TO MONITOR.
[2018-10-25] VITALS (26 sets, daily range): BP systolic 91–131; BP diastolic 41–89
--- NOTE | 2018-10-25 06:03 | NUR ---
END OF SHIFT SUMMARY: Pt has remained stable on vent this shift. Monitor sinus rhythm, O2 sat 97-100% on FiO2 30%. Pt has facial and upper extremity tremors/twitching whenever suctioned or turned. Ativan given x2 along with routine anti-seizure meds. Urine output minimal, only 200 cc this shift. No changes in skin integrity. Family plans to withdraw ventilator at 0900 this a.m.
--- NOTE | 2018-10-25 14:23 | NUR ---
PT PASSED AT 1322 SUMMARY WORKSHEET FILLED OUT. FAMILY AT BEDSIDE FOR SUPPORT. CONSULTED NOTIFIED ON SHEET. SEE SUMMARY FOR FURTHER DETAILS INFORMATION
--- NOTE | 2018-10-25 15:31 | NUR ---
MET WITH SON AND CLOSE FRIENDS. SON TERESA (PATRICIA) MADE DECISION FOR DNR AND TO WITHDRAW CARE TODAY. SPOKE WITH TERESA AND PROVIDED EMOTIONAL SUPPORT. REQUESTED RESOURCES FOR CREMATION AND PROVIDED. AVIS POND [phone] AND CHANDU GUY C:[phone] TO PROVIDE SUPPORT FOR TERESA.
--- NOTE | 2018-10-26 08:16 | HC ---
[facility] [place] [address] CONSULTATION Name: ALISHA PALMA Room #: 246-P [facility] IN M.R.#: [id number] Admission: 10/20/18 ������������������ Attend Phys: Rigo Gallegos MD Discharge: 10/25/18 ������������������ Date of : 41 Report #: [id number] THIS REPORT FOR: //name// CC: Rigo Naranjo DATE OF SERVICE: 10/20/2018 INDICATION: Cardiac arrest. HISTORY OF PRESENT ILLNESS: This is a 78-year-old female with a history of recent 5-vessel CABG, VT, ischemic cardiomyopathy, chronic hypotension, GI bleed, hyperlipidemia presenting with an out of hospital arrest. According to family members, she complained of dizziness this morning and was found to be unresponsive on the floor. EMS was called. Upon arrival, they noted VT, converted with 2 shocks. She was intubated for respiratory distress. She is presently intubated, with a stable blood pressure and rhythm. The initial troponin was 0.12. The ECG reveals sinus rhythm with old inferior wall TX, but no acute ST segment changes. She was following up with Dr. Akins for an open wound from her recent surgery. PAST MEDICAL HISTORY: Presented in 07/2018 with weakness and near syncope. During that admission, she was found to have torsades and nonsustained VT. This led to cardiac catheterization revealing severe multivessel disease and severe cardiomyopathy. She had no complaints of chest pain. She did undergo 5-vessel CABG. History of hypotension, not able to add guideline-directed medical therapy. History of gastric ulcers with GI bleed. History of hyperkalemia. MEDICATIONS AT HOME: Include amiodarone 200 mg daily, digoxin, Lipitor 40 mg, Coreg 3.125 mg, Protonix 40, glipizide, aspirin, levothyroxine, Januvia. ALLERGIES: Include PENICILLIN AND SULFA. SOCIAL HISTORY: Negative for tobacco use. FAMILY HISTORY: Unobtainable. REVIEW OF SYSTEMS: Unobtainable. PHYSICAL EXAMINATION: VITAL SIGNS: Blood pressure is 120/60, heart rate is 60 beats per minute. GENERAL APPEARANCE: An elderly appearing female, presently intubated and sedated. HEENT: Normocephalic, atraumatic. NECK: No JVD. LUNGS: Clear to auscultation. [facility] [address] [place] [address] CONSULTATION Name: ALISHA PALMA Room #: [address] [place] [address] IN M.R.#: [id number] Admission: 10/20/18 ������������������ Attend Phys: Rigo Gallegos MD Discharge: 10/25/18 ������������������ Date of : 41 Report #: [id number] CARDIAC: Regular rate and rhythm, S1, S2 positive. ABDOMEN: Soft, nontender. EXTREMITIES: No cyanosis. Trace edema. ECG reveals sinus rhythm, Q-waves inferiorly, nonspecific ST segment abnormalities. LABORATORY VALUES: Potassium 3.1, creatinine is 0.6, magnesium is 0.9. Troponin 0.12. Digoxin level is 1.5. ASSESSMENT AND PLAN: 1. Ventricular tachycardia, precipitated by electrolyte imbalance including hypomagnesemia. The patient has a prior substrate for torsades and ventricular tachycardia prior to her bypass surgery. We will continue with amiodarone via IV at this time. She will need a repeat echocardiogram performed. Eventually will need EP consultation and probable ICD placement. We will also keep the potassium level above 4.0. 2. Coronary artery disease/coronary artery bypass graft, minimal troponin elevation, probably due to oxygen mismatch during arrest. The ECG does not show any acute ST segment changes. We will eventually need an ischemic evaluation. 3. Ischemic cardiomyopathy, stable with no evidence for congestion. She is not on an MOISE inhibitor due to a chronically low blood pressure. Await echo findings. 4. History of gastrointestinal bleed, hemoglobin is stable at 13.3. ��������������������������������������������� <ELECTRONICALLY SIGNED> ���������������������������������������� By: Juan Antonio Padilla MD ��������������������������������������������� 10/26/18 0816 0949 13 Juan Antonio Padilla MD /nt
== END 2018-10-25 16:47 | DRG 870 ==
LOC: ER 06:56 → ICU 07:38 → EROBS 07:38 → ICU 09:06
PROVIDERS: Emergency Medicine; Nurse Practitioner Acute Care; Pediatrics; ADMIT Internal Medicine
PROC: 0BH17EZ Insertion of Endotracheal Airway into Trachea, Via Natural or Artificial Opening (ICD-10-PCS; principal; 2018-10-20)
PROC: 5A1955Z Respiratory Ventilation, Greater than 96 Consecutive Hours (ICD-10-PCS; principal; 2018-10-20)
DX: A41.9 Sepsis, unspecified organism (principal); L89.323 Pressure ulcer of left buttock, stage 3; J96.01 Acute respiratory failure with hypoxia; J96.02 Acute respiratory failure with hypercapnia; R65.21 Severe sepsis with septic shock; N39.0 Urinary tract infection, site not specified; I47.2 Ventricular tachycardia; G93.1 Anoxic brain damage, not elsewhere classified; I38 Endocarditis, valve unspecified; I13.0 Hypertensive heart and chronic kidney disease with heart failure and stage 1 through stage 4 chronic kidney disease, or unspecified chronic kidney disease; I46.2 Cardiac arrest due to underlying cardiac condition; E03.9 Hypothyroidism, unspecified; G89.29 Other chronic pain; M54.9 Dorsalgia, unspecified; E78.00 Pure hypercholesterolemia, unspecified; N18.9 Chronic kidney disease, unspecified; I50.9 Heart failure, unspecified; I25.5 Ischemic cardiomyopathy; E78.5 Hyperlipidemia, unspecified; E83.42 Hypomagnesemia; I25.10 Atherosclerotic heart disease of native coronary artery without angina pectoris; E11.22 Type 2 diabetes mellitus with diabetic chronic kidney disease; Z66 Do not resuscitate; I27.20 Pulmonary hypertension, unspecified; E87.6 Hypokalemia; I95.9 Hypotension, unspecified; G40.901 Epilepsy, unspecified, not intractable, with status epilepticus; M62.84 Sarcopenia; Z88.0 Allergy status to penicillin; Z86.010 Personal history of colon polyps; Z95.1 Presence of aortocoronary bypass graft; Z88.2 Allergy status to sulfonamides; Z82.49 Family history of ischemic heart disease and other diseases of the circulatory system
CPT/HCPCS: 10078